=== PATIENT | female | born 1950 | race Caucasian/White ===

== ENCOUNTER → 2018-07-03 | Day surgery (SDC) | payer MEDICARE, OTHER ==
[~2018-07-03] MED LIST: Benzocaine 20% Oral Spray 59.2 ML Canister MUCMEM ONE; Lactated Ringers 1,000 ML IV SCH; Midazolam 1 MG/ML 2 ML SDV IV ONE; Midazolam 1 MG/ML 2 ML SDV ONE; fentaNYL 100 MCG/2 ML SDV IV ONE; fentaNYL 100 MCG/2 ML SDV ONE
[2018-07-03 09:27] VITALS: BP 129/47
--- NOTE | 2018-07-03 10:03 | OR ---
DATE OF OPERATION: 07/03/2018 PREOPERATIVE DIAGNOSIS: PERSONAL HISTORY OF PRIOR COLON POLYPS AND FAMILY HISTORY OF COLON CANCER. POSTOPERATIVE DIAGNOSIS: PERSONAL HISTORY OF PRIOR COLON POLYPS AND FAMILY HISTORY OF COLON CANCER. SURGEON: Román Franco MD PROCEDURE: TOTAL COLONOSCOPY. ANESTHESIA: Conscious sedation with IV Versed and fentanyl. SPECIMEN: None. FINDINGS: Some sigmoid diverticulosis, otherwise normal. RECOMMENDATIONS: Followup screening colonoscopy, 5 years depending on patient health. INDICATION FOR PROCEDURE: This 68-year-old female has had a brother with colon cancer in his mid 30s. She also had a colonoscopy 3 years ago with removal of 5 polyps. DESCRIPTION OF PROCEDURE: After adequate preparation, a colonoscope was inserted into the rectum. This was passed all the way to the cecum; however, traversing the sigmoid was quite difficult and painful for the patient. It was probably secondary to the amount of diverticulosis she has. I was able to get around to the right side, and palpation confirmed I was in the cecum. The bowel prep was adequate. On withdrawal of the scope, I did not see any recurrent polyp growths. She does have sigmoid diverticulosis. Anal and rectal examination were normal. Air was suctioned from the colon and the scope removed. BPB/MODL /[id number]
--- NOTE | 2018-07-03 12:50 | OR ---
DATE OF OPERATION: 07/03/2018 PREOPERATIVE DIAGNOSIS: HISTORY OF GASTRIC ULCERS AND GASTROESOPHAGEAL REFLUX DISEASE. POSTOPERATIVE DIAGNOSIS: HISTORY OF GASTRIC ULCERS AND GASTROESOPHAGEAL REFLUX DISEASE. SURGEON: Román Franco MD PROCEDURE: ESOPHAGOGASTRODUODENOSCOPY WITH BIOPSY OF GASTRIC ANTRUM FOR TERRI AND BIOPSY OF SMALL GASTRIC POLYP. ANESTHESIA: Conscious sedation with IV Versed and fentanyl. SPECIMEN: None. FINDINGS: Minimal gastritis and several small probable hyperplastic polyps RECOMMENDATIONS: Awaiting pathology. INDICATION FOR PROCEDURE: This 68-year-old female has a history of gastric ulcers, and now has recurrent epigastric pain and GERD symptoms. DESCRIPTION OF PROCEDURE: After adequate preparation, a gastroscope was inserted into the esophagus. This was passed down to the distal esophagus. This shows no evidence of a hiatal hernia or distal esophageal erosions. The scope was advanced into the stomach. Both, forward and retroflexed views were done. Along the body of the stomach, there were 4 to 5 benign-appearing hyperplastic polyps. One of these was completely excised using a cup biopsy forceps. Examination of the prepyloric area showed evidence of gastritis. A photograph of this was taken, and there were some small ulcerations around the pyloric opening itself. The scope was advanced through the pylorus, and the duodenal examination was normal. Air was suctioned from the stomach and the scope removed. TIANA/KELECHI /[id number]
== END ==
LOC: CC.SDS 07:24
PROVIDERS: ATTEND Surgery
DX: Z12.11 Encounter for screening for malignant neoplasm of colon (principal); K57.30 Diverticulosis of large intestine without perforation or abscess without bleeding; K21.9 Gastro-esophageal reflux disease without esophagitis; K31.7 Polyp of stomach and duodenum; I10 Essential (primary) hypertension; I42.0 Dilated cardiomyopathy; M19.90 Unspecified osteoarthritis, unspecified site; I25.10 Atherosclerotic heart disease of native coronary artery without angina pectoris; E78.5 Hyperlipidemia, unspecified; E78.1 Pure hyperglyceridemia; E03.9 Hypothyroidism, unspecified; G47.33 Obstructive sleep apnea (adult) (pediatric); Z86.010 Personal history of colon polyps; Z79.82 Long term (current) use of aspirin; Z79.899 Other long term (current) drug therapy; Z79.890 Hormone replacement therapy; Z80.0 Family history of malignant neoplasm of digestive organs; Z88.8 Allergy status to other drugs, medicaments and biological substances; Z88.0 Allergy status to penicillin; Z88.5 Allergy status to narcotic agent
CPT/HCPCS: 43239; 82962; 87081; G0105; J2250; J3010; J7120; 88305

== ENCOUNTER 2019-01-21 17:35 | Observation (INO) | payer MEDICARE, OTHER ==
--- NOTE | 2019-01-21 18:33 | EDM.PDOC ---
ED HPI GENERAL MEDICAL PROBLEM - General Chief Complaint: Cardiovascular Problem Stated Complaint: defibrillator going off Time Seen by Provider: 01/21/19 17:55 Source of Information: Reports: Patient History Limitations: Reports: No Limitations - History of Present Illness INITIAL COMMENTS - FREE TEXT/NARRATIVE: Libby is a 68 yo female who presents to the ED via [facility] with concerns of her defibrillator going off. She states it has never done this before. States she had went out to the get the mail from the mailbox and started to feel lightheaded. Upon getting back in the house she elected to sit in her recliner. She states she did have a drink of water and then her defibrillator shocked her about 4 times. States she tried getting up afterwards but felt really weak. Admits the weakness is improving. She states since arrival of the ambulance she hasn't had any further shocks. States she doesn't feel lightheaded anymore. States she did get a little short of breath at onset but that has subsided as well. States overall she has been feeling well up until this evening. States she is starting to feel like her normal self again. Denies any chest pain, palpitations or shortness of breath presently. Duration: Resolved Prior to Arrival Location: Reports: Chest Associated Symptoms: Reports: Nausea/Vomiting, Shortness of Breath, Weakness - Related Data Allergies Allergy/AdvReac Type Severity Reaction Status Date / Time lisinopril Allergy Cough Verified 01/21/19 18:10 oxycodone [From Roxicet] Allergy Vomiting Verified 01/21/19 18:10 oxycodone HCl [From Endocet] Allergy Nausea Verified 01/21/19 18:10 Penicillins Allergy Nausea and Verified 01/21/19 18:10 Vomiting Home Meds: Home Meds Aspirin 81 mg PO DAILY 02/09/15 [History] Butalbital/Aspirin/Caffeine [Fiorinal 50-325-40 MG] 1 - 2 tab PO TID PRN [History] Calcium Carbonate/Vitamin D3 [Calcium 600-Vit D3 400 Tablet] 2 tab PO DAILY [History] Carvedilol 25 mg PO BID 02/09/15 [History] Cholecalciferol (Vitamin D3) [Vitamin D3] 5,000 unit PO DAILY 02/09/15 [History] Docusate Sodium [Colace] 100 mg PO TID 02/09/15 [History] Furosemide 40 mg PO DAILY 02/09/15 [History] Levothyroxine [Synthroid] 50 mcg PO BEDTIME 02/09/15 [History] Losartan [Cozaar] 100 mg PO DAILY 02/09/15 [History] Magnesium 400 mg PO DAILY 02/09/15 [History] Multivitamin with Minerals [Multiple Vitamin] 1 tab PO DAILY 02/09/15 [History] Pantoprazole Sodium 40 mg PO DAILY 02/09/15 [History] Potassium Chloride 20 meq PO DAILY 02/09/15 [History] Rosuvastatin Calcium [Crestor] 10 mg PO BEDTIME 02/09/15 [History] Vitamin B Complex Vit C No.4 [Super B Complex] 1 tab PO DAILY 02/09/15 [History] Clotrimazole/Betamethasone Dip [Lotrisone Cream] 1 applic TOP BID PRN 07/03/18 [ History] Cyclobenzaprine HCl 10 mg PO BID PRN 07/03/18 [History] Spironolactone [Aldactone] 12.5 mg PO DAILY 07/03/18 [History] Triamcinolone Acetonide [Triamcinolone Acetonide 0.1% Crm] 1 applic TOP ASDIRECTED PRN 07/03/18 [History] metFORMIN [Glucophage] 1,000 mg PO DAILY 07/03/18 [History] traMADol HCl [Tramadol HCl] 50 mg PO Q6H PRN 07/03/18 [History] Estradiol [Estrace] 1 tab PO DAILY 01/21/19 [History] Past Medical History Cardiovascular History: Reports: Automatic Implantable Cardioverter Defibrillators, Cardiomyopathy, High Cholesterol, Hypertension, Pacemaker Respiratory History: Reports: Sleep Apnea Gastrointestinal History: Reports: GERD Psychiatric History: Reports: Depression Endocrine/Metabolic History: Reports: Hypothyroidism - Past Surgical History HEENT Surgical History: Reports: Naso-Sinus Surgery GI Surgical History: Reports: Appendectomy, Cholecystectomy Female Surgical History: Reports: Section, Hysterectomy Social & Family History - Family History Family Medical History: Noncontributory - Tobacco Use Smoking Status *Q: Never Smoker - Caffeine Use Caffeine Use: Reports: None - Recreational Drug Use Recreational Drug Use: No ED ROS GENERAL - Review of Systems Review Of Systems: See Below Constitutional: Reports: Weakness. Denies: Fever, Chills, Diaphoresis HEENT: Reports: No Symptoms Respiratory: Reports: Shortness of Breath (resolved). Denies: Cough Cardiovascular: Reports: Lightheadedness (resolved). Denies: Chest Pain, Palpitations, Syncope GI/Abdominal: Reports: No Symptoms : Reports: No Symptoms Neurological: Reports: No Symptoms Psychiatric: Reports: No Symptoms ED EXAM, GENERAL - Physical Exam Exam: See Below Exam Limited By: No Limitations General Appearance: Alert, No Apparent Distress Ears: Normal External Exam, Normal Canal, Hearing Grossly Normal, Normal TMs Nose: Normal Inspection, Normal Mucosa, No Blood Throat/Mouth: Normal Inspection, Normal Lips, Normal Gums, Normal Oropharynx, Normal Voice, No Airway Compromise Head: Atraumatic, Normocephalic Neck: Normal Inspection, Supple Respiratory/Chest: No Respiratory Distress, Lungs Clear, Normal Breath Sounds, No Accessory Muscle Use Cardiovascular: Regular Rate, Rhythm, No Edema, No Murmur GI/Abdominal: Normal Bowel Sounds, Soft, Non-Tender, No Distention Extremities: Normal Inspection Neurological: Alert, Oriented, No Motor/Sensory Deficits Psychiatric: Normal Affect, Normal Mood Skin Exam: Warm, Dry, Intact, Normal Color, No Rash EKG INTERPRETATION EKG Date: 01/21/19 Time: 17:45 Rhythm: Other (ventricular paced rhythm) Comparison: NA - No Prior EKG Course - Vital Signs Last Recorded V/S: Last Vital Signs Temp 98.8 F 01/21/19 18:00 Pulse 95 01/21/19 18:00 Resp 20 01/21/19 18:00 BP 122/87 01/21/19 18:00 Pulse Ox 97 01/21/19 18:00 - Orders/Labs/Meds Orders: Active Orders 24 hr Category Date Time Status Patient Status Manage Transfer [TRANSFER] Routine ADT 01/21/19 20:08 Ordered Chest 2V [CR] Stat Exams 01/21/19 17:44 Taken Resuscitation Status Routine Resus Stat 01/21/19 20:09 Ordered Labs: Laboratory Tests 01/21/19 01/21/19 01/21/19 Range/Units 17:35 17:50 17:50 WBC 7.2 (5.0-10.0) 10^3/uL RBC 4.75 (4.00-5.50) 10^6/uL Hgb 12.7 (12.0-16.0) g/dL Hct 39.3 (37.0-47.0) % MCV 82.7 (82.0-94.0) fL MCH 26.7 L (27.0-32.0) pg MCHC 32.3 L (33.0-38.0) g/dL RDW Coeff of Kasey 15.6 H (11.0-15.0) % Plt Count 298 (150-400) 10^3/uL Neut % (Auto) 52.0 (35-85) % Lymph % (Auto) 35.1 (10-55) % [place] % (Auto) 8.9 (0-16) % Eos % (Auto) 3.6 (0-5) % Baso % (Auto) 0.4 (0-3) % Neut # (Auto) 3.75 (1.80-7.00) 10^3/uL Lymph # (Auto) 2.53 (1.00-4.80) 10^3/uL [place] # (Auto) 0.64 (0.00-0.80) 10^3/uL Eos # (Auto) 0.26 (0.00-0.45) 10^3/uL Baso # (Auto) 0.03 10^3/uL PT 10.2 (9.7-12.3) SEC INR 0.99 (0.92-1.18) Sodium (136-145) mEq/L Potassium (3.5-5.0) mEq/L Chloride (98-106) mEq/L Carbon Dioxide (21-32) mmol/L BUN (7-18) mg/dL Creatinine (0.6-1.0) mg/dL Est Cr Clr Drug Dosing mL/min Estimated GFR (MDRD) (>=60) mL/min Glucose (75-99) mg/dL Calcium (8.4-10.1) mg/dL Magnesium 1.8 (1.8-2.4) mg/dL Total Bilirubin (0.0-1.0) mg/dL AST (15-37) U/L ALT (12-78) U/L Alkaline Phosphatase (46-116) U/L Lactate Dehydrogenase (100-190) U/L Creatine Kinase (21-215) U/L Troponin I (0.00-0.06) ng/mL Total Protein (6.4-8.2) g/dL Albumin (3.4-5.0) g/dL 01/21/19 Range/Units 17:50 WBC (5.0-10.0) 10^3/uL RBC (4.00-5.50) 10^6/uL Hgb (12.0-16.0) g/dL Hct (37.0-47.0) % MCV (82.0-94.0) fL MCH (27.0-32.0) pg MCHC (33.0-38.0) g/dL RDW Coeff of Kasey (11.0-15.0) % Plt Count (150-400) 10^3/uL Neut % (Auto) (35-85) % Lymph % (Auto) (10-55) % [place] % (Auto) (0-16) % Eos % (Auto) (0-5) % Baso % (Auto) (0-3) % Neut # (Auto) (1.80-7.00) 10^3/uL Lymph # (Auto) (1.00-4.80) 10^3/uL [place] # (Auto) (0.00-0.80) 10^3/uL Eos # (Auto) (0.00-0.45) 10^3/uL Baso # (Auto) 10^3/uL PT (9.7-12.3) SEC INR (0.92-1.18) Sodium 139 (136-145) mEq/L Potassium 3.3 L D (3.5-5.0) mEq/L Chloride 100 (98-106) mEq/L Carbon Dioxide 27 (21-32) mmol/L BUN 13 (7-18) mg/dL Creatinine 1.0 (0.6-1.0) mg/dL Est Cr Clr Drug Dosing 52.36 mL/min Estimated GFR (MDRD) 55 L (>=60) mL/min Glucose 154 H (75-99) mg/dL Calcium 9.1 (8.4-10.1) mg/dL Magnesium (1.8-2.4) mg/dL Total Bilirubin 0.2 (0.0-1.0) mg/dL AST 18 (15-37) U/L ALT 28 (12-78) U/L Alkaline Phosphatase 77 (46-116) U/L Lactate Dehydrogenase 143 (100-190) U/L Creatine Kinase 68 (21-215) U/L Troponin I 0.034 (0.00-0.06) ng/mL Total Protein 7.2 (6.4-8.2) g/dL Albumin 3.4 (3.4-5.0) g/dL - Re-Assessments/Exams Free Text/Narrative Re-Assessment/Exam: 01/21/19 19:48 Jaycee has been doing well in the ED. She hasn't had any further discharges of her defibrillator. She currently states she is feeling back to her normal self. I consulted with Systems Checkout Mechanic Dr. Barboza at [facility] in [place] and recommended giving magnesium and potassium. Goal with potassium is above 4 per light rail signal technician. Departure - Departure Time of Disposition: 19:46 Disposition: Refer to Observation Clinical Impression: Defibrillator discharge Referrals: Alissa Tovar, POLICY CHECKER [Primary Care Provider] - Forms: ED Department Discharge - Problem List & Annotations (1) Defibrillator discharge SNOMED Code(s): 146163505, 471694474 Code(s): Z45.02 - ENCNTR FOR ADJUST AND MGMT OF AUTOMATIC IMPLNTBL CARD DEFIB Status: Acute (2) Hypokalemia SNOMED Code(s): 47439556 Code(s): E87.6 - HYPOKALEMIA Status: Acute - Problem List Review Problem List Initiated/Reviewed/Updated: Yes - My Orders Last 24 Hours: My Active Orders 01/21/19 17:44 Chest 2V [CR] Stat 01/21/19 20:08 Patient Status Manage Transfer [TRANSFER] Routine 01/21/19 20:09 Resuscitation Status Routine - Assessment/Plan Admission H&P: Please use this note as an admission H&P Last 24 Hours: My Active Orders 01/21/19 17:44 Chest 2V [CR] Stat 01/21/19 20:08 Patient Status Manage Transfer [TRANSFER] Routine 01/21/19 20:09 Resuscitation Status Routine Plan: No shocks during time in ED. Will admit under observation to Dr. Cortes's services. Again, consulted with cardiology who advised monitoring. See course. Recommended repeating cardiac enzymes and treating with Potassium and Magnesium supplementation. Stated if cardiac enzymes are negative, may discharge home. I did consult with Dr. Cortes and let him know about admission, which he was in agreement with. We have been working with [employer] rep to get interrogation of pacemaker. We were able to get an interrogation which the [employer] Rep did confirm it is appropriately working as she had a run of V Tach. He stated it did initially tried capturing and pacing, which was not successful. States it then did give 7-8 shocks with the last shock keeping her in a normal paced rhythm. Cardiac enzymes will be done at 2200hrs and again in am.
[2019-01-21] MEDS ORDERED: Potassium Chloride 20 MEQ in Premix Bag 2 BAG IV ONE (22:02)
[2019-01-21] MEDS ORDERED: CYCLOBENZAPRINE 10 MG PO PRN (22:02)
[2019-01-21] MEDS ORDERED: BUTALBITAL PO PRN (22:02)
[2019-01-21] MEDS ORDERED: CAFFEINE PO PRN (22:02)
[2019-01-21] MEDS ORDERED: TRAMADOL 50 MG PO PRN (22:02)
[2019-01-21] MEDS ORDERED: [UNRECOGNIZED DRUG - OTHER] PO PRN (22:02)
[2019-01-21] MEDS ORDERED: ASPIRIN PO PRN (22:02)
[2019-01-21] MEDS ORDERED: Enoxaparin 30 MG/0.3 ML Syringe SUBCUT SCH (22:02)
[2019-01-21] MEDS: Potassium Chloride 20 MEQ in Premix Bag 1 BAG IV SCH (23:34)
[2019-01-21] MEDS ORDERED: Sodium Chloride 0.9% 250 ML ONE (23:51)
[2019-01-22] MEDS ORDERED: Lidocaine 1% 20 ML MDV ONE (00:12)
[2019-01-22] MEDS ORDERED: Lidocaine 1% 20 ML MDV INJECT ONE (00:36)
[2019-01-22] MEDS ORDERED: Sodium Chloride 0.9% 250 ML IV SCH (00:45)
[2019-01-22] MEDS: Potassium Chloride 20 MEQ in Premix Bag 1 BAG IV SCH (05:42)
[2019-01-22] MEDS ORDERED: **PTOM** Pantoprazole 40 MG Tab.CR PO SCH (07:00)
[2019-01-22 07:45] LABS: CHLORIDE,CL 104 mEq/L (98-106); SODIUM,NA 140 mEq/L (136-145)
[2019-01-22] MEDS ORDERED: **PTOM** Aspirin 81 MG Tab.EC PO SCH (08:00)
[2019-01-22] MEDS ORDERED: **PTOM** Losartan 100 MG Tab PO SCH (08:00)
[2019-01-22] MEDS ORDERED: **PTOM** Furosemide 40 MG Tab PO SCH (08:00)
[2019-01-22] MEDS ORDERED: Carvedilol 12.5 MG Tab PO SCH (08:00)
[2019-01-22] MEDS ORDERED: ESTRADIOL 1 MG PO SCH (08:00)
[2019-01-22] MEDS ORDERED: Potassium Chloride 10 MEQ Tab.ER PO SCH (08:00)
[2019-01-22] MEDS ORDERED: SPIRONOLACTONE 25 MG PO SCH (08:00)
[2019-01-22] MEDS ORDERED: **PTOM** metFORMIN 500 MG Tab PO SCH (08:00)
[2019-01-22] MEDS ORDERED: **PTOM** Docusate Sodium 100 MG Cap PO SCH (08:00)
[2019-01-22 08:53] VITALS: BP 136/53
[2019-01-22] MEDS ORDERED: CARVEDILOL 25 MG PO SCH (09:15)
[2019-01-22] MEDS ORDERED: Simvastatin 40 MG Tab PO SCH (20:00)
[2019-01-22] MEDS ORDERED: Non-Formulary Medication 1 Each (Rosuvastatin Calcium [Crestor] 10 MG) PO SCH (20:00)
[2019-01-22] MEDS ORDERED: **PTOM** Levothyroxine 50 MCG Tab PO SCH (20:00)
[2019-01-22] MEDS ORDERED: ROSUVASTATIN 20 MG PO SCH (20:00)
--- NOTE | 2019-01-22 22:18 | PCM.DCSUM1 ---
Discharge Summary - Hospital Course Free Text/Narrative:: Patient presented to ER with near syncope, defibrillator going off. Had been walking out to the mail box and started to feel very weak and lightheaded, thought she was going to pass out. Sat on her kitchen chair but continued to feel lightheaded. Defibrillator had went off several times. ON arrival to the ER, patient was feeling better. No further shortness of breath, no headache or chest pain. Did still feel weak. Labs done, potassium mildly low at 3.3, troponin negative. Adi Franks did call cardiology at [facility], recommended admit with replacement of potassium and magnesium. Keep potassium above 4. Diagnosis: Stroke: No Modified Cristobal Scale: No Symptoms at All Modified Sussex Scale Score: 0 - Discharge Data Discharge Date: 01/22/19 Discharge Disposition: DC/Tfer to Acute Hospital 02 Condition: Fair - Patient Summary/Data Complications: none Hospital Course: Patient has been feeling good since admission. No further discharges from the defibrillator. No chest pain or shortness of breath. Potassium and magnesium have stabilized. Potassium 4.3 this am, magnesium 2.3. Did receive call from TOYIN Matta in electrophysiology at [facility] with report from device interrogation. She recommends transfer to cardiology and electrophysiology for further work up due to v tach storm noted on tracing. Had one 2 second episode of v fib. Did require 8 discharges from the device to convert patient to stable rhythm. Feels needs further work up for cause, rule out ischemia. Did discuss with patient and . Consulted with Dr. Magana, hospitalist at [facility]. Agreed to accept the patient in transfer for further work up. - Patient Instructions Other/Special Instructions: Transfer to [facility] to Dr. Magana - Discharge Plan *PRESCRIPTION DRUG MONITORING PROGRAM REVIEWED*: No *COPY OF PRESCRIPTION DRUG MONITORING REPORT IN PATIENT ANNE: No Prescriptions/Med Rec: Magnesium Oxide [Magnesium] 400 mg PO BID #60 capsule Potassium Chloride 20 meq PO BID #60 tablet.er Home Medications: Home Meds Aspirin 81 mg PO DAILY 02/09/15 [History] Butalbital/Aspirin/Caffeine [Fiorinal 50-325-40 MG] 1 - 2 tab PO TID PRN [History] Calcium Carbonate/Vitamin D3 [Calcium 600-Vit D3 400 Tablet] 2 tab PO DAILY [History] Carvedilol 25 mg PO BID 02/09/15 [History] Cholecalciferol (Vitamin D3) [Vitamin D3] 5,000 unit PO DAILY 02/09/15 [History] Docusate Sodium [Colace] 100 mg PO TID 02/09/15 [History] Furosemide 40 mg PO DAILY 02/09/15 [History] Levothyroxine [Synthroid] 50 mcg PO BEDTIME 02/09/15 [History] Losartan [Cozaar] 100 mg PO DAILY 02/09/15 [History] Multivitamin with Minerals [Multiple Vitamin] 1 tab PO DAILY 02/09/15 [History] Pantoprazole Sodium 40 mg PO DAILY 02/09/15 [History] Rosuvastatin Calcium [Crestor] 10 mg PO BEDTIME 02/09/15 [History] Vitamin B Complex Vit C No.4 [Super B Complex] 1 tab PO DAILY 02/09/15 [History] Clotrimazole/Betamethasone Dip [Lotrisone Cream] 1 applic TOP BID PRN 07/03/18 [ History] Cyclobenzaprine HCl 10 mg PO BID PRN 07/03/18 [History] Spironolactone [Aldactone] 12.5 mg PO DAILY 07/03/18 [History] Triamcinolone Acetonide [Triamcinolone Acetonide 0.1% Crm] 1 applic TOP ASDIRECTED PRN 07/03/18 [History] metFORMIN [Glucophage] 1,000 mg PO DAILY 07/03/18 [History] traMADol HCl [Tramadol HCl] 50 mg PO Q6H PRN 07/03/18 [History] Estradiol [Estrace] 1 tab PO DAILY 01/21/19 [History] Magnesium Oxide [Magnesium] 400 mg PO BID #60 capsule 01/22/19 [Rx] Potassium Chloride 20 meq PO BID #60 tablet.er 01/22/19 [Rx] Forms: ED Department Discharge - Discharge Summary/Plan Comment DC Time >30 min.: Yes Discharge Summary/Plan Comment: Transfer to [facility] to Dr. Magana per ALS Time for exam and discussion with family 20 minutes Time for consult 20 minutes Time for discharge/transfer orders and documentation 15 minutes - General Info Date of Service: 01/22/19 Admission Dx/Problem (Free Text: Defibrillator Discharge Hypokalemia Functional Status: Reports: Pain Controlled, Tolerating Diet, Ambulating - Review of Systems General: Denies: Fever, Weakness, Fatigue, Malaise HEENT: Reports: No Symptoms Pulmonary: Denies: Shortness of Breath, Cough Cardiovascular: Denies: Chest Pain, Edema, Lightheadedness Gastrointestinal: Reports: No Symptoms Genitourinary: Reports: No Symptoms Musculoskeletal: Reports: No Symptoms Skin: Reports: No Symptoms Neurological: Reports: No Symptoms Psychiatric: Reports: No Symptoms - Patient Data Vitals - Most Recent: Last Vital Signs Temp 97.8 F 01/22/19 08:00 Pulse 77 01/22/19 08:00 Resp 20 01/22/19 08:00 BP 136/53 L 01/22/19 09:28 Pulse Ox 98 01/22/19 08:00 Weight - Most Recent: 211 lb I&O - Last 24 hours: Intake & Output 01/22/19 01/22/19 01/22/19 06:59 14:59 22:59 Intake Total 100 Balance 100 Lab Results - Last 24 hrs: Laboratory Results - last 24 hr 01/21/19 01/22/19 Range/Units 22:02 07:00 Sodium 140 (136-145) mEq/L Potassium 4.3 D (3.5-5.0) mEq/L Chloride 104 (98-106) mEq/L Carbon Dioxide 28 (21-32) mmol/L BUN 13 (7-18) mg/dL Creatinine 0.8 (0.6-1.0) mg/dL Est Cr Clr Drug Dosing 65.45 mL/min Estimated GFR (MDRD) > 60 (>=60) mL/min Glucose 107 H D (75-99) mg/dL Calcium 9.5 (8.4-10.1) mg/dL Magnesium 2.3 (1.8-2.4) mg/dL Lactate Dehydrogenase 162 (100-190) U/L Creatine Kinase 589 H 725 H (21-215) U/L Troponin I 0.432 H 0.226 H (0.00-0.06) ng/mL Med Orders - Current: Current Medications Discontinued Medications Aspirin (Halfprin) [address] [facility] Last Admin: 01/22/19 09:29 Dose: 81 mg Carvedilol (Coreg) [address] [facility] Cyclobenzaprine HCl (Flexeril) 10 mg PO BID PRN PRN Reason: Muscle Spasm Docusate Sodium (Colace) [address] [facility] Last Admin: 01/22/19 09:29 Dose: 100 mg Enoxaparin Sodium (Lovenox) [address] [facility] Last Admin: 01/21/19 22:42 Dose: 30 mg Estradiol (Estradiol) [address] [facility] Last Admin: 01/22/19 09:30 Dose: 1 mg Furosemide (Lasix) [address] [facility] Last Admin: 01/22/19 09:29 Dose: 40 mg Magnesium Sulfate/Dextrose 1 (gm/ Premix) 100 mls @ 100 mls/hr IV ONETIME ONE Stop: 01/21/19 23:01 Last Admin: 01/21/19 22:32 Dose: 100 mls/hr Potassium Chloride 20 meq/ (Premix) 100 mls @ 25 mls/hr IV Q4H [facility] Stop: 01/22/19 06:29 Last Admin: 01/22/19 05:42 Dose: 25 mls/hr Sodium Chloride (Normal Saline) Confirm Administered Dose 250 mls @ as directed .ROUTE .STK-MED ONE Stop: 01/21/19 23:52 Last Admin: 01/22/19 00:38 Dose: Not Given Sodium Chloride (Normal Saline) 250 mls @ 31 mls/hr IV ASDIRECTED [facility] Stop: 01/22/19 08:49 Last Admin: 01/22/19 00:17 Dose: 31 mls/hr Levothyroxine Sodium (Synthroid) [address] [facility] Lidocaine HCl (Xylocaine 1%) Confirm Administered Dose 20 ml .ROUTE .STK-MED ONE Stop: 01/22/19 00:13 Last Admin: 01/22/19 00:38 Dose: Not Given Lidocaine HCl (Xylocaine 1%) 0 ml INJECT ONETIME ONE Stop: 01/22/19 00:37 Last Admin: 01/22/19 00:17 Dose: 1 ml Losartan Potassium (Cozaar) [address] [facility] Last Admin: 01/22/19 09:28 Dose: 100 mg Magnesium Oxide (Magnesium Oxide) [address] [facility] Last Admin: 01/22/19 10:17 Dose: 500 mg Magnesium Oxide (Magnesium Oxide) Confirm Administered Dose 250 mg .ROUTE .STK- MED ONE Stop: 01/22/19 10:27 Last Admin: 01/22/19 10:55 Dose: Not Given Metformin HCl (Glucophage) 1,[address] [facility] Last Admin: 01/22/19 09:30 Dose: 1,000 mg Non-Formulary Medication (Butalbital/Aspirin/Caffeine [Fiorinal 50-325-40 Mg]) 1 - 2 tab PO TID PRN PRN Reason: Headache Ptom Carvedilol (25 Mg Tab) [address] [facility] Last Admin: 01/22/19 09:28 Dose: 25 mg Ptom Potassium (Chloride 20 Meq) [address] [facility] Last Admin: 01/22/19 09:28 Dose: 20 meq Ptom Rosuvastatin 20 Mg Tab [address] [facility] Pantoprazole Sodium (Protonix) 40 mg PO DAILY@0700 [facility] Last Admin: 01/22/19 09:29 Dose: 40 mg Potassium Chloride (Klor-Con 10) [address] [facility] Simvastatin (Zocor) [address] [facility] Spironolactone (Aldactone) 12.[address] [facility] Last Admin: 01/22/19 09:30 Dose: 12.5 mg Tramadol HCl (Ultram) 50 mg PO Q6H PRN PRN Reason: Pain - Exam General: Reports: Alert, Oriented HEENT: Reports: Mucous Membr. Moist/[place] Neck: Reports: Supple Lungs: Reports: Clear to Auscultation, Normal Respiratory Effort Cardiovascular: Reports: Regular Rate, Regular Rhythm GI/Abdominal Exam: Normal Bowel Sounds, Soft, Non-Tender Extremities: Normal Inspection, No Pedal Edema Skin: Reports: Warm, Dry Neurological: Reports: No New Focal Deficit
== END 2019-01-22 10:35 ==
LOC: CC.ED 17:35 → CC.MS 19:58 → UNDOADMOB 19:58 → CC.ED 20:00 → CC.MS 20:09
PROVIDERS: ADMIT Physician Assistant Medical; ATTEND Family Medicine
DX: T82.198A Other mechanical complication of other cardiac electronic device, initial encounter (principal); E87.6 Hypokalemia; I10 Essential (primary) hypertension; I42.9 Cardiomyopathy, unspecified; K21.9 Gastro-esophageal reflux disease without esophagitis; E03.9 Hypothyroidism, unspecified; E78.00 Pure hypercholesterolemia, unspecified; Z79.82 Long term (current) use of aspirin; Z79.84 Long term (current) use of oral hypoglycemic drugs; Z88.0 Allergy status to penicillin; Z88.5 Allergy status to narcotic agent; Z88.8 Allergy status to other drugs, medicaments and biological substances; Z95.0 Presence of cardiac pacemaker; Z98.890 Other specified postprocedural states
CPT/HCPCS: 36415; 71046; 80048; 80053; 82550; 83615; 83735; 84484; 85025; 85610; 93005; 96365; 96366; 96367; 96372; 99217; 99220; 99285-25; A4217; A9270-GY; G0378; J1650; J2001; J3475; J3480; J7050

== ENCOUNTER 2019-12-17 11:20 | Emergency (ER) | payer MEDICARE, OTHER ==
[2019-12-17 12:07] VITALS: BP 126/52; PULSE 82
--- NOTE | 2019-12-17 12:12 | EDM.PDOC ---
ED HPI GENERAL MEDICAL PROBLEM - General Chief Complaint: Lower Extremity Injury/Pain Stated Complaint: leg pain Time Seen by Provider: 12/17/19 11:30 Source of Information: Reports: Patient, EMS, RN History Limitations: Reports: No Limitations - History of Present Illness INITIAL COMMENTS - FREE TEXT/NARRATIVE: Pt brought in by EMS. States that she missed the last step when she was coming out of the house. She has pain to the right lower leg and has obvious deformities noted. She denies any distal numbness and tingling. She denies any other injuries. No LOC. Does have many underlying health issues including implanted defibrillator, DM, CHF. Onset: Today Onset Date: 12/17/19 Onset Time: 10:00 Location: Reports: Lower Extremity, Right Quality: Reports: Stabbing Improves with: Reports: Immobilization Worsens with: Reports: Movement Associated Symptoms: Reports: No Other Symptoms - Related Data Allergies Allergy/AdvReac Type Severity Reaction Status Date / Time lisinopril Allergy Cough Verified 12/17/19 11:36 oxycodone [From Roxicet] Allergy Vomiting Verified 12/17/19 11:36 oxycodone HCl [From Endocet] Allergy Nausea Verified 12/17/19 11:36 Penicillins Allergy Nausea and Verified 12/17/19 11:36 Vomiting Home Meds: Home Meds Aspirin 81 mg PO DAILY 02/09/15 [History] Butalbital/Aspirin/Caffeine [Fiorinal 50-325-40 MG] 1 - 2 tab PO TID PRN [History] Calcium Carbonate/Vitamin D3 [Calcium 600-Vit D3 400 Tablet] 2 tab PO DAILY [History] Cholecalciferol (Vitamin D3) [Vitamin D3] 5,000 unit PO DAILY 02/09/15 [History] Docusate Sodium [Colace] 100 mg PO TID 02/09/15 [History] Furosemide 40 mg PO DAILY 02/09/15 [History] Levothyroxine [Synthroid] 50 mcg PO BEDTIME 02/09/15 [History] Losartan [Cozaar] 50 mg PO DAILY 02/09/15 [History] Multivitamin with Minerals [Multiple Vitamin] 1 tab PO DAILY 02/09/15 [History] Pantoprazole Sodium 40 mg PO DAILY 02/09/15 [History] Rosuvastatin Calcium [Crestor] 10 mg PO BEDTIME 02/09/15 [History] Vitamin B Complex Vit C No.4 [Super B Complex] 1 tab PO DAILY 02/09/15 [History] carvediloL [Carvedilol] 12.5 mg PO BID 02/09/15 [History] Clotrimazole/Betamethasone Dip [Lotrisone Cream] 1 applic TOP BID PRN 07/03/18 [ History] Cyclobenzaprine HCl 10 mg PO BID PRN 07/03/18 [History] Spironolactone [Aldactone] 12.5 mg PO DAILY 07/03/18 [History] Triamcinolone Acetonide [Triamcinolone Acetonide 0.1% Crm] 1 applic TOP ASDIRECTED PRN 07/03/18 [History] metFORMIN [Glucophage] 1,000 mg PO 1700 07/03/18 [History] traMADol HCl [Tramadol HCl] 50 mg PO Q6H PRN 07/03/18 [History] estradioL [Estrace] 1 tab PO DAILY 01/21/19 [History] Magnesium Oxide [Magnesium] 400 mg PO BID #60 capsule 01/22/19 [Rx] Potassium Chloride 20 meq PO BID #60 tablet.er 01/22/19 [Rx] Hydrocodone/Acetaminophen [[place] 10-325 Tablet] 1 each PO Q6H PRN 12/17/19 [ History] Sotalol HCl [Sotalol] 120 mg PO BID 12/17/19 [History] Past Medical History Cardiovascular History: Reports: Automatic Implantable Cardioverter Defibrillators, Cardiomyopathy, High Cholesterol, Hypertension, Pacemaker Respiratory History: Reports: Sleep Apnea Gastrointestinal History: Reports: GERD Genitourinary History: Reports: None 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: Psychiatric History: Reports: Depression Endocrine/Metabolic History: Reports: Hypothyroidism - Past Surgical History HEENT Surgical History: Reports: Naso-Sinus Surgery Cardiovascular Surgical History: Reports: AICD, Pacer Respiratory Surgical History: Reports: None GI Surgical History: Reports: Appendectomy, Cholecystectomy Female Surgical History: Reports: Section, Hysterectomy Endocrine Surgical History: Reports: None Social & Family History - Family History Family Medical History: Noncontributory - Caffeine Use Caffeine Use: Reports: None - Living Situation & Occupation Living situation: Reports: , with Spouse Occupation: Unemployed Review of Systems - Review of Systems Review Of Systems: See Below Constitutional: Reports: No Symptoms Eyes: Reports: No Symptoms Ears: Reports: No Symptoms Nose: Reports: No Symptoms Respiratory: Reports: No Symptoms Cardiovascular: Reports: No Symptoms GI/Abdominal: Reports: No Symptoms Musculoskeletal: Reports: Other (see HPI) Skin: Reports: Bruising (right lower leg.) ED EXAM, GENERAL - Physical Exam Exam: See Below Exam Limited By: No Limitations General Appearance: Alert, WD/WN, Moderate Distress Ears: Normal External Exam, Normal Canal Throat/Mouth: Normal Inspection, Normal Oropharynx, No Airway Compromise Head: Atraumatic, Normocephalic Neck: Normal Inspection, Supple, Non-Tender, Full Range of Motion Respiratory/Chest: No Respiratory Distress, Lungs Clear, Normal Breath Sounds Cardiovascular: Regular Rate, Rhythm, Other (defibrillator noted tot he left upper chest wall.) GI/Abdominal: Normal Bowel Sounds, Soft, Non-Tender Extremities: Other (swelling and deformity noted to the right lower extremity. Pulses are present distally.) Neurological: Alert, Oriented Psychiatric: Normal Affect, Normal Mood Skin Exam: Warm, Dry, Intact Course - Orders/Labs/Meds Orders: Active Orders 24 hr Category Date Time Status Ankle Min 3V Rt [CR] Stat Exams 12/17/19 11:31 Ordered - Re-Assessments/Exams Free Text/Narrative Re-Assessment/Exam: 12/17/19 12:[address] Lu orthopedics at [facility]. He will accept pt from ortho standpoint. 12/17/2019 [address] Muñoz hospitalist at [facility] who accepted pt for inpt admission. Risks of transfer include include pain uncontrolled, benefits are specialists are available to fix fractures and monitor the cardiac status. risks of not transferring include permanent disability and pain control. benefits of not transfer are none. Departure - Departure Time of Disposition: 12:42 Disposition: DC/Tfer to Acute Hospital 02 Condition: Good Clinical Impression: Diabetes mellitus, History of cardiac defibrillator placement Tibia/fibula fracture, shaft Qualifiers: Encounter type: initial encounter Fracture type: closed Laterality: right Qualified Code(s): S82.201A - Unspecified fracture of shaft of right tibia, initial encounter for closed fracture; S82.401A - Unspecified fracture of shaft of right fibula, initial encounter for closed fracture - Discharge Information *PRESCRIPTION DRUG MONITORING PROGRAM REVIEWED*: Not Applicable *COPY OF PRESCRIPTION DRUG MONITORING REPORT IN PATIENT ANNE: Not Applicable Referrals: Marilee Franks PA-C [Primary Care Provider] - Additional Instructions: transfer to [facility] to Dr. Muñoz hospitalist. ALEJO hurd. - Problem List & Annotations (1) Tibia/fibula fracture, shaft SNOMED Code(s): 846590351 Code(s): S82.209A - UNSP FRACTURE OF SHAFT OF UNSP TIBIA, INIT FOR CLOS FX; S82.409A - UNSP FRACTURE OF SHAFT OF UNSP FIBULA, INIT FOR CLOS FX Status: Acute Priority: High Current Visit: Yes Qualifiers: Encounter type: initial encounter Fracture type: closed Laterality: right Qualified Code(s): S82.201A - Unspecified fracture of shaft of right tibia, initial encounter for closed fracture; S82.401A - Unspecified fracture of shaft of right fibula, initial encounter for closed fracture - Problem List Review Problem List Initiated/Reviewed/Updated: Yes - My Orders Last 24 Hours: My Active Orders 12/17/19 11:31 Ankle Min 3V Rt [CR] Stat - Assessment/Plan Last 24 Hours: My Active Orders 12/17/19 11:31 Ankle Min 3V Rt [CR] Stat
[2019-12-17] MEDS: fentaNYL 100 MCG/2 ML SDV IVPUSH ONE (12:15)
[2019-12-17 12:38] LABS: CHLORIDE,CL 103 mEq/L (98-106); SODIUM,NA 139 mEq/L (136-145)
[2019-12-17] MEDS: Sodium Chloride 0.45% 1,000 ML IV SCH (13:00)
[2019-12-17] MEDS: fentaNYL 100 MCG/2 ML SDV IM PRN (13:01)
== END 2019-12-17 13:45 ==
LOC: CC.ED 11:20
DX: S82.231A Displaced oblique fracture of shaft of right tibia, initial encounter for closed fracture (principal); S82.64XA Nondisplaced fracture of lateral malleolus of right fibula, initial encounter for closed fracture; I10 Essential (primary) hypertension; K21.9 Gastro-esophageal reflux disease without esophagitis; F32.9 Major depressive disorder, single episode, unspecified; E11.9 Type 2 diabetes mellitus without complications; E03.9 Hypothyroidism, unspecified; Z79.82 Long term (current) use of aspirin; Z79.899 Other long term (current) drug therapy; Z88.5 Allergy status to narcotic agent; Z88.0 Allergy status to penicillin; Z88.8 Allergy status to other drugs, medicaments and biological substances; Z95.810 Presence of automatic (implantable) cardiac defibrillator; W10.8XXA Fall (on) (from) other stairs and steps, initial encounter; Y92.009 Unspecified place in unspecified non-institutional (private) residence as the place of occurrence of the external cause
CPT/HCPCS: 36415; 73590-RT; 80053; 85025; 96372; 96374; 99284; 99285-25; J3010; J7030

== ENCOUNTER 2020-05-19 13:21 | Inpatient (IN) | payer MEDICARE, OTHER ==
[2020-05-19 13:46] LABS: CHLORIDE,CL 100 mEq/L (98-106); SODIUM,NA 137 mEq/L (136-145)
[2020-05-19] MEDS ORDERED: Morphine 2 MG/ML SYRINGE IVPUSH PRN (15:15)
[2020-05-19] MEDS ORDERED: Temazepam 15 MG Cap PO PRN (15:15)
[2020-05-19] MEDS ORDERED: Acetaminophen 325 MG Tab PO PRN (15:15)
[2020-05-19] MEDS ORDERED: Sodium Chloride 0.9% 10 ML Syringe FLUSH PRN (15:15)
[2020-05-19] MEDS ORDERED: Levofloxacin/Dextrose 5%-Water 500 MG in Premix Bag 1 BAG IV SCH (15:30)
[2020-05-19] MEDS ORDERED: Barium Sulfate Oral Susp 450 ML Bottle PO ONE (15:41)
[2020-05-19] MEDS ORDERED: Iopamidol 755 Mg/ML 100 ML Bottle IVPUSH ONE (15:41)
[2020-05-19] MEDS ORDERED: HYDROmorphone 1 MG/ML Syringe IVPUSH PRN (16:18)
[2020-05-19] MEDS: metroNIDAZOLE/Normal Saline 500 MG in Premix Bag 1 BAG IV SCH (16:19)
[2020-05-19] MEDS ORDERED: [UNRECOGNIZED DRUG - OTHER] PO PRN (16:25)
[2020-05-19] MEDS ORDERED: CAFFEINE PO PRN (16:25)
[2020-05-19] MEDS ORDERED: BUTALBITAL PO PRN (16:25)
[2020-05-19] MEDS ORDERED: Cyclobenzaprine 10 MG Tab PO PRN (16:25)
[2020-05-19] MEDS ORDERED: ASPIRIN PO PRN (16:25)
[2020-05-19] MEDS: Sotalol 80 MG Tab PO SCH (20:00)
[2020-05-19] MEDS ORDERED: Non-Formulary Medication 1 Each (Magnesium Oxide [Magnesium] 400 MG) PO SCH (20:00)
[2020-05-19] MEDS: Levothyroxine 50 MCG Tab PO SCH (20:01)
[2020-05-19] MEDS: Acetaminophen/HYDROcodone 325-5 MG Tab PO PRN (20:02)
[2020-05-19] MEDS: Carvedilol 12.5 MG Tab PO SCH (20:02)
[2020-05-19] MEDS: Simvastatin 40 MG Tab PO SCH (20:02)
[2020-05-19] MEDS ORDERED: Enoxaparin 40 MG/0.4 ML Syringe SUBCUT SCH (20:45)
[2020-05-20] MEDS: metroNIDAZOLE/Normal Saline 500 MG in Premix Bag 1 BAG IV SCH ×2 (00:08→06:43)
[2020-05-20] MEDS: traMADol 50 MG Tab PO PRN (00:17)
[2020-05-20] MEDS: Pantoprazole 40 MG Tab.CR PO SCH (06:43)
[2020-05-20 07:26] LABS: CHLORIDE,CL 101 mEq/L (98-106); SODIUM,NA 136 mEq/L (136-145)
[2020-05-20] MEDS: Acetaminophen/HYDROcodone 325-5 MG Tab PO PRN ×3 (08:21→20:09)
[2020-05-20] MEDS: Magnesium Chloride 64 MG Tab.ER PO SCH (08:22)
[2020-05-20] MEDS: Multivitamin Tab PO SCH (08:22)
[2020-05-20] MEDS: Sotalol 80 MG Tab PO SCH ×2 (08:22→20:00)
[2020-05-20] MEDS: Furosemide 40 MG Tab PO SCH (08:22)
[2020-05-20] MEDS: Estradiol 1 MG Tab PO SCH (08:22)
[2020-05-20] MEDS: Losartan 25 MG Tab PO SCH (08:24)
[2020-05-20] MEDS: Aspirin 81 MG Tab.Chew PO SCH (08:24)
[2020-05-20] MEDS: Calcium Carbonate/Vitamin D3 1250 MG-200 Unit Tab PO SCH (08:24)
[2020-05-20] MEDS: Vitamin B Complex Cap PO SCH (08:24)
[2020-05-20] MEDS: Carvedilol 12.5 MG Tab PO SCH ×2 (08:24→20:01)
[2020-05-20] MEDS: Enoxaparin 40 MG/0.4 ML Syringe SUBCUT SCH (08:25)
[2020-05-20] MEDS: Spironolactone 25 MG Tab PO SCH (12:10)
[2020-05-20] MEDS: Cholecalciferol (Vitamin D3) 25 MCG Tab PO SCH (12:11)
[2020-05-20] MEDS: Potassium Chloride 10 MEQ Tab.ER PO SCH (12:11)
[2020-05-20] MEDS ORDERED: Piperacillin/Tazobactam 4.5 GM in Sodium Chloride 0.9% 100 ML IV ONE (13:30)
[2020-05-20] MEDS: Simethicone 80 MG Tab.Chew PO PRN ×2 (14:19→20:09)
[2020-05-20] MEDS: Levothyroxine 50 MCG Tab PO SCH (20:00)
[2020-05-20] MEDS: Simvastatin 40 MG Tab PO SCH (20:01)
[2020-05-20] MEDS: Piperacillin/Tazobactam 3.375 GM in Sodium Chloride 0.9% 100 ML IV SCH (20:01)
--- NOTE | 2020-05-20 21:18 | PCM.PN ---
- General Info Date of Service: 05/20/20 Admission Dx/Problem (Free Text): Acute Diverticulitis Functional Status: Reports: Tolerating Diet, Ambulating, Urinating. Denies: Pain Controlled - Review of Systems General: Reports: Weakness, Fatigue, Malaise. Denies: Fever HEENT: Denies: Ear Pain, Sinus Congestion, Sore Throat Pulmonary: Denies: Shortness of Breath, Cough Cardiovascular: Denies: Chest Pain, Edema, Lightheadedness Gastrointestinal: Reports: Abdominal Pain. Denies: Nausea, Vomiting Genitourinary: Reports: No Symptoms Musculoskeletal: Reports: No Symptoms Skin: Reports: No Symptoms Neurological: Reports: No Symptoms - Patient Data Vitals - Most Recent: Last Vital Signs Temp 96.5 F L 05/20/20 16:00 Pulse 82 05/20/20 20:01 Resp 18 05/20/20 16:00 BP 117/53 L 05/20/20 20:01 Pulse Ox 98 05/20/20 16:00 Weight - Most Recent: 219 lb I&O - Last 24 Hours: Intake & Output 05/20/20 05/20/20 05/20/20 06:59 14:59 22:59 Intake Total 100 Balance 100 Lab Results Last 24 Hours: Laboratory Results - last 24 hr 05/20/20 05/20/20 05/20/20 Range/Units 07:00 07:00 20:57 WBC 9.9 (5.0-10.0) 10^3/uL RBC 4.12 (4.00-5.50) 10^6/uL Hgb 11.0 L (12.0-16.0) g/dL Hct 34.4 L (37.0-47.0) % MCV 83.5 (82.0-94.0) fL MCH 26.7 L (27.0-32.0) pg MCHC 32.0 L (33.0-38.0) g/dL RDW Coeff of Kasey 15.8 H (11.0-15.0) % Plt Count 345 (150-400) 10^3/uL Neut % (Auto) 71.1 (35-85) % Lymph % (Auto) 17.3 (10-55) % [place] % (Auto) 10.4 (0-16) % Eos % (Auto) 1.0 (0-5) % Baso % (Auto) 0.2 (0-3) % Neut # (Auto) 7.00 (1.80-7.00) 10^3/uL Lymph # (Auto) 1.71 (1.00-4.80) 10^3/uL [place] # (Auto) 1.03 H (0.00-0.80) 10^3/uL Eos # (Auto) 0.10 (0.00-0.45) 10^3/uL Baso # (Auto) 0.02 10^3/uL Sodium 136 (136-145) mEq/L Potassium 3.4 L (3.5-5.0) mEq/L Chloride 101 (98-106) mEq/L Carbon Dioxide 27 (21-32) mmol/L BUN 7 (7-18) mg/dL Creatinine 0.7 (0.6-1.0) mg/dL Est Cr Clr Drug Dosing 75.44 mL/min Estimated GFR (MDRD) > 60 (>=60) mL/min Glucose 109 H (75-99) mg/dL POC Glucose 145 H (75-105) mg/dl Calcium 8.3 L (8.4-10.1) mg/dL C-Reactive Protein 17.1 H (0.2-0.8) mg/dL Med Orders - Current: Current Medications Acetaminophen (Tylenol) 650 mg PO Q4H PRN PRN Reason: Pain (Mild 1-3)/fever Hydrocodone Bitart/Acetaminophen ([place] 325-5 Mg) 1 tab PO Q4H PRN PRN Reason: Pain (moderate 4-6) Last Admin: 05/20/20 20:09 Dose: 1 tab Documented by: Aspirin (Aspirin) 81 mg PO DAILY [facility] Last Admin: 05/20/20 08:24 Dose: 81 mg Documented by: Calcium Carbonate (Calcium Carbonate/Vitamin D 1250 Mg-200 Unit) 2 tab PO DAILY [facility] Last Admin: 05/20/20 08:24 Dose: 2 tab Documented by: Carvedilol (Coreg) 12.5 mg PO BID [facility] Last Admin: 05/20/20 20:01 Dose: 12.5 mg Documented by: Cholecalciferol (Vitamin D3) 125 mcg PO 1200 [facility] Last Admin: 05/20/20 12:11 Dose: 125 mcg Documented by: Cyclobenzaprine HCl (Flexeril) 10 mg PO TID PRN PRN Reason: Muscle Spasm Enoxaparin Sodium (Lovenox) 40 mg SUBCUT DAILY [facility] Last Admin: 05/20/20 08:25 Dose: 40 mg Documented by: Estradiol (Estradiol) 1 mg PO DAILY [facility] Last Admin: 05/20/20 08:22 Dose: 1 mg Documented by: Furosemide (Lasix) 40 mg PO DAILY [facility] Last Admin: 05/20/20 08:22 Dose: 40 mg Documented by: Hydromorphone HCl (Dilaudid) 1 mg IVPUSH Q3H PRN PRN Reason: Abdominal Pain Last Admin: 05/19/20 16:39 Dose: 1 mg Documented by: Piperacillin Sod/Tazobactam (Sod 3.375 gm/ Sodium Chloride) 100 mls @ 25 mls/hr IV Q8H [facility] Last Admin: 05/20/20 20:01 Dose: 25 mls/hr Documented by: Levothyroxine Sodium (Synthroid) 50 mcg PO BEDTIME [facility] Last Admin: 05/20/20 20:00 Dose: 50 mcg Documented by: Losartan Potassium (Cozaar) 50 mg PO DAILY [facility] Last Admin: 05/20/20 08:24 Dose: 50 mg Documented by: Magnesium Chloride (Mag-64) 128 mg PO DAILY [facility] Last Admin: 05/20/20 08:22 Dose: 128 mg Documented by: Metformin HCl (Glucophage) 1,000 mg PO BEDTIME [facility] Multivitamins/Minerals/Vitamin C (Tab-A-Sahil) 1 tab PO DAILY [facility] Last Admin: 05/20/20 08:22 Dose: 1 tab Documented by: Pantoprazole Sodium (Protonix) 40 mg PO ACBREAKFAST [facility] Last Admin: 05/20/20 06:43 Dose: 40 mg Documented by: Potassium Chloride (Klor-Con 10) 40 meq PO 1200 [facility] Last Admin: 05/20/20 12:11 Dose: 40 meq Documented by: Simethicone (Simethicone) 80 mg PO Q4H PRN PRN Reason: Gas Last Admin: 05/20/20 20:09 Dose: 80 mg Documented by: Simvastatin (Zocor) 40 mg PO BEDTIME [facility] Last Admin: 05/20/20 20:01 Dose: 40 mg Documented by: Sodium Chloride (Saline Flush) 10 ml FLUSH ASDIRECTED PRN PRN Reason: Keep Vein Open Sotalol HCl (Betapace) 120 mg PO BID [facility] Last Admin: 05/20/20 20:00 Dose: 120 mg Documented by: Spironolactone (Aldactone) 25 mg PO DAILY@1200 [facility] Last Admin: 05/20/20 12:10 Dose: 25 mg Documented by: Temazepam (Restoril) 15 mg PO BEDTIME PRN PRN Reason: Sleep Tramadol HCl (Ultram) 50 mg PO Q6H PRN PRN Reason: Pain Last Admin: 05/20/20 00:17 Dose: 50 mg Documented by: Vitamin B Complex (Vitamin B Complex) 1 each PO DAILY [facility] Last Admin: 05/20/20 08:24 Dose: 1 each Documented by: Discontinued Medications Barium Sulfate (Readi-Cat 2) 900 ml PO ONETIME ONE Stop: 05/19/20 15:42 Last Admin: 05/19/20 18:53 Dose: 900 ml Documented by: Enoxaparin Sodium (Lovenox) 40 mg SUBCUT BEDTIME [facility] Last Admin: 05/19/20 21:27 Dose: Not Given Documented by: Levofloxacin/Dextrose 500 mg/ (Premix) 100 mls @ 100 mls/hr IV Q24H [facility] Last Admin: 05/19/20 16:20 Dose: 100 mls/hr Documented by: Metronidazole 500 mg/ Premix 100 mls @ 100 mls/hr IV Q8H [facility] Last Admin: 05/20/20 06:43 Dose: 100 mls/hr Documented by: Piperacillin Sod/Tazobactam (Sod 4.5 gm/ Sodium Chloride) 100 mls @ 200 mls/hr IV ONETIME ONE Stop: 05/20/20 13:59 Last Admin: 05/20/20 14:19 Dose: 200 mls/hr Documented by: Iopamidol (Isovue-370 (76%)) 100 ml IVPUSH ONETIME ONE Stop: 05/19/20 15:42 Last Admin: 05/19/20 18:53 Dose: 100 ml Documented by: Morphine Sulfate (Morphine) 2 mg IVPUSH Q2H PRN PRN Reason: Pain (severe 7-10) Non-Formulary Medication (Butalbital/Aspirin/Caffeine [Fiorinal 50-325-40 Mg]) 1 - 2 tab PO TID PRN PRN Reason: Headache Non-Formulary Medication (Magnesium Oxide [Magnesium]) 400 mg PO BID [facility] Last Admin: 05/20/20 00:58 Dose: Not Given Documented by: - Exam General: Alert, Oriented HEENT: Mucous Membr. Moist/[place] Neck: Supple Lungs: Clear to Auscultation, Normal Respiratory Effort Cardiovascular: Regular Rate, Regular Rhythm GI/Abdominal Exam: Normal Bowel Sounds, Soft, Distended, Tender (tender to left lower quadrant and across suprapubic area) Extremities: Normal Inspection, No Pedal Edema Skin: Warm, Dry Neurological: No New Focal Deficit Sepsis Event Note - Evaluation Sepsis Screening Result: No Definite Risk - Focused Exam Vital Signs: Vital Signs Temp Pulse Pulse Resp BP BP Pulse Ox 05/20/20 20:01 82 117/53 L 05/20/20 20:00 82 117/53 L 05/20/20 16:00 96.5 F L 84 18 123/51 L 98 05/20/20 12:00 98.0 F 78 18 120/54 L 95 - Problem List & Annotations (1) Diverticulitis SNOMED Code(s): 794583404 Code(s): K57.92 - DVTRCLI OF INTEST, PART UNSP, W/O PERF OR ABSCESS W/O BLEED Status: Acute Priority: High Current Visit: Yes - Problem List Review Problem List Initiated/Reviewed/Updated: No - My Orders Last 24 Hours: My Active Orders 05/20/20 13:18 Simethicone 80 mg PO Q4H PRN 05/20/20 20:00 Piperacillin/Tazobactam [Piperacil-Tazobact] 3.375 gm Sodium Chloride 0.9% [Normal Saline] 100 ml IV Q8H - Assessment Assessment:: Diverticulitis - Plan Plan:: Patient admits to ongoing discomfort in her lower abdomen. Feels bloated. Has been eating well. Does feel may be constipated as well. CT scan done last evening shows some worsening of the inflammation related to the diverticulitis. Had been on 8 days of oral Levaquin and Flagyl. Labs done this am show normal WBC, CRP 17. Will switch patient to Zosyn today as failed outpatient therapy with levaquin and flagyl. Pain meds as needed. Repeat labs in am.
[2020-05-21] MEDS: Simethicone 80 MG Tab.Chew PO PRN (03:56)
[2020-05-21] MEDS: Piperacillin/Tazobactam 3.375 GM in Sodium Chloride 0.9% 100 ML IV SCH ×3 (03:56→19:49)
[2020-05-21] MEDS: traMADol 50 MG Tab PO PRN ×2 (03:56→12:14)
[2020-05-21] MEDS: Pantoprazole 40 MG Tab.CR PO SCH (07:02)
[2020-05-21 08:03] LABS: CHLORIDE,CL 104 mEq/L (98-106); SODIUM,NA 140 mEq/L (136-145)
[2020-05-21] MEDS: Vitamin B Complex Cap PO SCH (08:22)
[2020-05-21] MEDS: Calcium Carbonate/Vitamin D3 1250 MG-200 Unit Tab PO SCH (08:22)
[2020-05-21] MEDS: Multivitamin Tab PO SCH (08:22)
[2020-05-21] MEDS: Magnesium Chloride 64 MG Tab.ER PO SCH (08:22)
[2020-05-21] MEDS: Carvedilol 12.5 MG Tab PO SCH ×2 (08:22→19:49)
[2020-05-21] MEDS: Aspirin 81 MG Tab.Chew PO SCH (08:23)
[2020-05-21] MEDS: Sotalol 80 MG Tab PO SCH ×2 (08:23→19:50)
[2020-05-21] MEDS: Losartan 25 MG Tab PO SCH (08:25)
[2020-05-21] MEDS: Estradiol 1 MG Tab PO SCH (08:25)
[2020-05-21] MEDS: Furosemide 40 MG Tab PO SCH (08:25)
[2020-05-21] MEDS: Enoxaparin 40 MG/0.4 ML Syringe SUBCUT SCH (08:26)
[2020-05-21] MEDS ORDERED: Ondansetron 4 MG/2 ML SDV IVPUSH PRN (10:43)
--- NOTE | 2020-05-21 11:27 | PCM.PN ---
- General Info Date of Service: 05/21/20 Admission Dx/Problem (Free Text): Acute Diverticulitis Functional Status: Reports: Ambulating, Urinating. Denies: Pain Controlled, Tolerating Diet - Review of Systems General: Reports: Weakness, Fatigue, Malaise HEENT: Reports: No Symptoms Pulmonary: Denies: Shortness of Breath, Cough Cardiovascular: Denies: Chest Pain, Edema, Lightheadedness Gastrointestinal: Reports: Abdominal Pain, Constipation, Nausea. Denies: Vomiting Genitourinary: Reports: No Symptoms Musculoskeletal: Reports: No Symptoms Skin: Reports: No Symptoms Neurological: Reports: Weakness - Patient Data Vitals - Most Recent: Last Vital Signs Temp 97.4 F 05/21/20 08:00 Pulse 80 05/21/20 08:23 Resp 18 05/21/20 08:00 BP 117/62 05/21/20 08:25 Pulse Ox 95 05/21/20 08:00 Weight - Most Recent: 219 lb Lab Results Last 24 Hours: Laboratory Results - last 24 hr 05/20/20 05/21/20 05/21/20 Range/Units 20:57 07:10 07:10 WBC 8.7 (5.0-10.0) 10^3/uL RBC 4.36 (4.00-5.50) 10^6/uL Hgb 11.6 L (12.0-16.0) g/dL Hct 36.4 L (37.0-47.0) % MCV 83.5 (82.0-94.0) fL MCH 26.6 L (27.0-32.0) pg MCHC 31.9 L (33.0-38.0) g/dL RDW Coeff of [place] 15.8 H (11.0-15.0) % Plt Count 405 H (150-400) 10^3/uL Neut % (Auto) 70.2 (35-85) % Lymph % (Auto) 18.9 (10-55) % [place] % (Auto) 9.3 (0-16) % Eos % (Auto) 1.4 (0-5) % Baso % (Auto) 0.2 (0-3) % Neut # (Auto) 6.08 (1.80-7.00) 10^3/uL Lymph # (Auto) 1.64 (1.00-4.80) 10^3/uL [place] # (Auto) 0.81 H (0.00-0.80) 10^3/uL Eos # (Auto) 0.12 (0.00-0.45) 10^3/uL Baso # (Auto) 0.02 10^3/uL Sodium 140 (136-145) mEq/L Potassium 3.8 (3.5-5.0) mEq/L Chloride 104 (98-106) mEq/L Carbon Dioxide 29 (21-32) mmol/L BUN 7 (7-18) mg/dL Creatinine 0.9 (0.6-1.0) mg/dL Est Cr Clr Drug Dosing 58.67 mL/min Estimated GFR (MDRD) > 60 (>=60) mL/min Glucose 125 H (75-99) mg/dL POC Glucose 145 H (75-105) mg/dl Calcium 8.5 (8.4-10.1) mg/dL C-Reactive Protein 13.8 H (0.2-0.8) mg/dL Med Orders - Current: Current Medications Acetaminophen (Tylenol) 650 mg PO Q4H PRN PRN Reason: Pain (Mild 1-3)/fever Hydrocodone Bitart/Acetaminophen ([place] 325-5 Mg) 1 tab PO Q4H PRN PRN Reason: Pain (moderate 4-6) Last Admin: 05/20/20 20:09 Dose: 1 tab Documented by: Aspirin (Aspirin) 81 mg PO DAILY [facility] Last Admin: 05/21/20 08:23 Dose: 81 mg Documented by: Calcium Carbonate (Calcium Carbonate/Vitamin D 1250 Mg-200 Unit) 2 tab PO DAILY [facility] Last Admin: 05/21/20 08:22 Dose: 2 tab Documented by: Carvedilol (Coreg) 12.5 mg PO BID [facility] Last Admin: 05/21/20 08:22 Dose: 12.5 mg Documented by: Cholecalciferol (Vitamin D3) 125 mcg PO 1200 [facility] Last Admin: 05/20/20 12:11 Dose: 125 mcg Documented by: Cyclobenzaprine HCl (Flexeril) 10 mg PO TID PRN PRN Reason: Muscle Spasm Enoxaparin Sodium (Lovenox) 40 mg SUBCUT DAILY [facility] Last Admin: 05/21/20 08:26 Dose: 40 mg Documented by: Estradiol (Estradiol) 1 mg PO DAILY [facility] Last Admin: 05/21/20 08:25 Dose: 1 mg Documented by: Furosemide (Lasix) 40 mg PO DAILY [facility] Last Admin: 05/21/20 08:25 Dose: 40 mg Documented by: Hydromorphone HCl (Dilaudid) 1 mg IVPUSH Q3H PRN PRN Reason: Abdominal Pain Last Admin: 05/19/20 16:39 Dose: 1 mg Documented by: Piperacillin Sod/Tazobactam (Sod 3.375 gm/ Sodium Chloride) 100 mls @ 25 mls/hr IV Q8H [facility] Last Admin: 05/21/20 03:56 Dose: 25 mls/hr Documented by: Levothyroxine Sodium (Synthroid) 50 mcg PO BEDTIME [facility] Last Admin: 05/20/20 20:00 Dose: 50 mcg Documented by: Losartan Potassium (Cozaar) 50 mg PO DAILY [facility] Last Admin: 05/21/20 08:25 Dose: 50 mg Documented by: Magnesium Chloride (Mag-64) 128 mg PO DAILY [facility] Last Admin: 05/21/20 08:22 Dose: 128 mg Documented by: Metformin HCl (Glucophage) 1,000 mg PO BEDTIME [facility] Multivitamins/Minerals/Vitamin C (Tab-A-Sahil) 1 tab PO DAILY [facility] Last Admin: 05/21/20 08:22 Dose: 1 tab Documented by: Ondansetron HCl (Zofran Odt) 4 mg PO Q6H PRN PRN Reason: Nausea/Vomiting Ondansetron HCl (Zofran) 4 mg IVPUSH Q6H PRN PRN Reason: Nausea Pantoprazole Sodium (Protonix) 40 mg PO ACBREAKFAST [facility] Last Admin: 05/21/20 07:02 Dose: 40 mg Documented by: Polyethylene Glycol (Miralax) 17 gm PO DAILY [facility] Potassium Chloride (Klor-Con 10) 40 meq PO 1200 [facility] Last Admin: 05/20/20 12:11 Dose: 40 meq Documented by: Simethicone (Simethicone) 80 mg PO Q4H PRN PRN Reason: Gas Last Admin: 05/21/20 03:56 Dose: 80 mg Documented by: Simvastatin (Zocor) 40 mg PO BEDTIME [facility] Last Admin: 05/20/20 20:01 Dose: 40 mg Documented by: Sodium Chloride (Saline Flush) 10 ml FLUSH ASDIRECTED PRN PRN Reason: Keep Vein Open Sotalol HCl (Betapace) 120 mg PO BID [facility] Last Admin: 05/21/20 08:23 Dose: 120 mg Documented by: Spironolactone (Aldactone) 25 mg PO DAILY@1200 [facility] Last Admin: 05/20/20 12:10 Dose: 25 mg Documented by: Temazepam (Restoril) 15 mg PO BEDTIME PRN PRN Reason: Sleep Tramadol HCl (Ultram) 50 mg PO Q6H PRN PRN Reason: Pain Last Admin: 05/21/20 03:56 Dose: 50 mg Documented by: Vitamin B Complex (Vitamin B Complex) 1 each PO DAILY [facility] Last Admin: 05/21/20 08:22 Dose: 1 each Documented by: Discontinued Medications Barium Sulfate (Readi-Cat 2) 900 ml PO ONETIME ONE Stop: 05/19/20 15:42 Last Admin: 05/19/20 18:53 Dose: 900 ml Documented by: Enoxaparin Sodium (Lovenox) 40 mg SUBCUT BEDTIME [facility] Last Admin: 05/19/20 21:27 Dose: Not Given Documented by: Levofloxacin/Dextrose 500 mg/ (Premix) 100 mls @ 100 mls/hr IV Q24H [facility] Last Admin: 05/19/20 16:20 Dose: 100 mls/hr Documented by: Metronidazole 500 mg/ Premix 100 mls @ 100 mls/hr IV Q8H [facility] Last Admin: 05/20/20 06:43 Dose: 100 mls/hr Documented by: Piperacillin Sod/Tazobactam (Sod 4.5 gm/ Sodium Chloride) 100 mls @ 200 mls/hr IV ONETIME ONE Stop: 05/20/20 13:59 Last Admin: 05/20/20 14:19 Dose: 200 mls/hr Documented by: Iopamidol (Isovue-370 (76%)) 100 ml IVPUSH ONETIME ONE Stop: 05/19/20 15:42 Last Admin: 05/19/20 18:53 Dose: 100 ml Documented by: Morphine Sulfate (Morphine) 2 mg IVPUSH Q2H PRN PRN Reason: Pain (severe 7-10) Non-Formulary Medication (Butalbital/Aspirin/Caffeine [Fiorinal 50-325-40 Mg]) 1 - 2 tab PO TID PRN PRN Reason: Headache Non-Formulary Medication (Magnesium Oxide [Magnesium]) 400 mg PO BID [facility] Last Admin: 05/20/20 00:58 Dose: Not Given Documented by: - Exam General: Alert, Oriented HEENT: Mucous Membr. Moist/[place] Neck: Supple Lungs: Clear to Auscultation, Normal Respiratory Effort Cardiovascular: Regular Rate, Regular Rhythm GI/Abdominal Exam: Normal Bowel Sounds, Soft, Non-Tender Extremities: Normal Inspection, No Pedal Edema Skin: Warm, Dry Neurological: No New Focal Deficit Sepsis Event Note - Evaluation Sepsis Screening Result: No Definite Risk - Focused Exam Vital Signs: Vital Signs Temp Pulse Pulse Resp BP BP Pulse Ox 05/21/20 08:25 117/62 05/21/20 08:23 80 117/62 05/21/20 08:22 80 117/62 05/21/20 08:00 97.4 F 80 18 117/62 95 05/21/20 03:57 98.6 F 81 16 129/54 L 97 05/21/20 00:00 98.6 F 81 16 119/61 96 - Problem List & Annotations (1) Diverticulitis SNOMED Code(s): 385485882 Code(s): K57.92 - DVTRCLI OF INTEST, PART UNSP, W/O PERF OR ABSCESS W/O BLEED Status: Acute Priority: High Current Visit: Yes - Problem List Review Problem List Initiated/Reviewed/Updated: Yes - My Orders Last 24 Hours: My Active Orders 05/20/20 13:18 Simethicone 80 mg PO Q4H PRN 05/20/20 20:00 Piperacillin/Tazobactam [Piperacil-Tazobact] 3.375 gm Sodium Chloride 0.9% [Normal Saline] 100 ml IV Q8H 05/21/20 10:43 Ondansetron [Zofran ODT] 4 mg PO Q6H PRN Ondansetron [Zofran] 4 mg IVPUSH Q6H PRN 05/21/20 Lunch Advance Diet Instructions [DIET] 05/22/20 08:00 polyethylene glycoL 3350 [MiraLAX] 17 gm PO DAILY - Assessment Assessment:: Diverticulitis - Plan Plan:: Patient admits to ongoing discomfort in her lower abdomen. Feels bloated. Has been eating well. Does feel may be constipated as well. CT scan done last evening shows some worsening of the inflammation related to the diverticulitis. Had been on 8 days of oral Levaquin and Flagyl. Labs done this am show normal WBC, CRP 17. Will switch patient to Zosyn today as failed outpatient therapy with levaquin and flagyl. Pain meds as needed. Repeat labs in am. 05-21-2020 Patient is having more abdominal discomfort this am. Feels bloated. Is passing gas. Does feel she is constipated as has only had very minimal stools in the last 3 days. Was nauseated this am and did not eat breakfast. States unable to handle any more "full liquids. Feels tomato soup is making her more nauseated". Has been up ambulating in halls. Labs are improving. WBC is normal. CRP is down to 13.8. Continue Zosyn. Start Zofran as needed. Miralax daily. Will advance diet as tolerated. Repeat labs in am.
[2020-05-21] MEDS: Ondansetron 4 MG Tab.DIS PO PRN ×2 (12:14→17:55)
[2020-05-21] MEDS: Cholecalciferol (Vitamin D3) 25 MCG Tab PO SCH (12:17)
[2020-05-21] MEDS: Spironolactone 25 MG Tab PO SCH (12:17)
[2020-05-21] MEDS: Potassium Chloride 10 MEQ Tab.ER PO SCH (12:18)
[2020-05-21] MEDS: Acetaminophen/HYDROcodone 325-5 MG Tab PO PRN (17:55)
[2020-05-21] MEDS: Levothyroxine 50 MCG Tab PO SCH (19:49)
[2020-05-21] MEDS: metFORMIN 500 MG Tab PO SCH (19:49)
[2020-05-21] MEDS: Simvastatin 40 MG Tab PO SCH (19:50)
[2020-05-22] MEDS: Piperacillin/Tazobactam 3.375 GM in Sodium Chloride 0.9% 100 ML IV SCH ×3 (04:01→19:56)
[2020-05-22 07:21] LABS: CHLORIDE,CL 102 mEq/L (98-106); SODIUM,NA 139 mEq/L (136-145)
[2020-05-22] MEDS: Aspirin 81 MG Tab.Chew PO SCH (08:23)
[2020-05-22] MEDS: Carvedilol 12.5 MG Tab PO SCH ×2 (08:23→19:55)
[2020-05-22] MEDS: Vitamin B Complex Cap PO SCH (08:23)
[2020-05-22] MEDS: Enoxaparin 40 MG/0.4 ML Syringe SUBCUT SCH (08:23)
[2020-05-22] MEDS: Multivitamin Tab PO SCH (08:24)
[2020-05-22] MEDS: Losartan 25 MG Tab PO SCH (08:24)
[2020-05-22] MEDS: Calcium Carbonate/Vitamin D3 1250 MG-200 Unit Tab PO SCH (08:24)
[2020-05-22] MEDS: Furosemide 40 MG Tab PO SCH (08:24)
[2020-05-22] MEDS: Magnesium Chloride 64 MG Tab.ER PO SCH (08:24)
[2020-05-22] MEDS: Estradiol 1 MG Tab PO SCH (08:24)
[2020-05-22] MEDS: Sotalol 80 MG Tab PO SCH ×2 (08:25→19:54)
[2020-05-22] MEDS: Pantoprazole 40 MG Tab.CR PO SCH (08:25)
[2020-05-22] MEDS: Polyethylene Glycol 3350 Powder 17 GM Packet PO SCH (08:26)
--- NOTE | 2020-05-22 12:25 | PCM.PN ---
- General Info Date of Service: 05/22/20 Admission Dx/Problem (Free Text): Acute Diverticulitis Functional Status: Reports: Pain Controlled, Tolerating Diet, Ambulating - Review of Systems General: Reports: Malaise. Denies: Fever HEENT: Reports: No Symptoms Pulmonary: Denies: Shortness of Breath, Cough Cardiovascular: Denies: Chest Pain, Edema, Lightheadedness Gastrointestinal: Reports: Abdominal Pain (has improved today. Has had several bowel movements over the last 12 hours. Appetite poor yesterday. Able to eat a small amount of soft foods this am.). Denies: Nausea, Vomiting Genitourinary: Reports: No Symptoms Musculoskeletal: Reports: No Symptoms Skin: Reports: No Symptoms Neurological: Reports: No Symptoms - Patient Data Vitals - Most Recent: Last Vital Signs Temp 97.4 F 05/22/20 07:54 Pulse 83 05/22/20 08:25 Resp 16 05/22/20 07:54 BP 108/63 05/22/20 08:25 Pulse Ox 96 05/22/20 07:54 Weight - Most Recent: 219 lb Lab Results Last 24 Hours: Laboratory Results - last 24 hr 05/21/20 05/22/20 05/22/20 Range/Units 19:59 07:02 07:02 WBC 9.1 (5.0-10.0) 10^3/uL RBC 4.44 (4.00-5.50) 10^6/uL Hgb 11.5 L (12.0-16.0) g/dL Hct 37.1 (37.0-47.0) % MCV 83.6 (82.0-94.0) fL MCH 25.9 L (27.0-32.0) pg MCHC 31.0 L (33.0-38.0) g/dL RDW Coeff of [place] 15.8 H (11.0-15.0) % Plt Count 453 H (150-400) 10^3/uL Neut % (Auto) 70.5 (35-85) % Lymph % (Auto) 21.6 (10-55) % [place] % (Auto) 7.3 (0-16) % Eos % (Auto) 0.5 (0-5) % Baso % (Auto) 0.1 (0-3) % Neut # (Auto) 6.43 (1.80-7.00) 10^3/uL Lymph # (Auto) 1.97 (1.00-4.80) 10^3/uL [place] # (Auto) 0.67 (0.00-0.80) 10^3/uL Eos # (Auto) 0.05 (0.00-0.45) 10^3/uL Baso # (Auto) 0.01 10^3/uL Sodium 139 (136-145) mEq/L Potassium 3.9 (3.5-5.0) mEq/L Chloride 102 (98-106) mEq/L Carbon Dioxide 28 (21-32) mmol/L BUN 7 (7-18) mg/dL Creatinine 0.9 (0.6-1.0) mg/dL Est Cr Clr Drug Dosing 58.67 mL/min Estimated GFR (MDRD) > 60 (>=60) mL/min Glucose 139 H (75-99) mg/dL POC Glucose 113 H (75-105) mg/dl Calcium 9.0 (8.4-10.1) mg/dL C-Reactive Protein 7.3 H (0.2-0.8) mg/dL Med Orders - Current: Current Medications Acetaminophen (Tylenol) 650 mg PO Q4H PRN PRN Reason: Pain (Mild 1-3)/fever Hydrocodone Bitart/Acetaminophen ([place] 325-5 Mg) 1 tab PO Q4H PRN PRN Reason: Pain (moderate 4-6) Last Admin: 05/21/20 17:55 Dose: 1 tab Documented by: Aspirin (Aspirin) 81 mg PO DAILY [facility] Last Admin: 05/22/20 08:23 Dose: 81 mg Documented by: Calcium Carbonate (Calcium Carbonate/Vitamin D 1250 Mg-200 Unit) 2 tab PO DAILY [facility] Last Admin: 05/22/20 08:24 Dose: 2 tab Documented by: Carvedilol (Coreg) 12.5 mg PO BID [facility] Last Admin: 05/22/20 08:23 Dose: 12.5 mg Documented by: Cholecalciferol (Vitamin D3) 125 mcg PO 1200 [facility] Last Admin: 05/21/20 12:17 Dose: 125 mcg Documented by: Cyclobenzaprine HCl (Flexeril) 10 mg PO TID PRN PRN Reason: Muscle Spasm Enoxaparin Sodium (Lovenox) 40 mg SUBCUT DAILY [facility] Last Admin: 05/22/20 08:23 Dose: 40 mg Documented by: Estradiol (Estradiol) 1 mg PO DAILY [facility] Last Admin: 05/22/20 08:24 Dose: 1 mg Documented by: Furosemide (Lasix) 40 mg PO DAILY [facility] Last Admin: 05/22/20 08:24 Dose: 40 mg Documented by: Hydromorphone HCl (Dilaudid) 1 mg IVPUSH Q3H PRN PRN Reason: Abdominal Pain Last Admin: 05/19/20 16:39 Dose: 1 mg Documented by: Piperacillin Sod/Tazobactam (Sod 3.375 gm/ Sodium Chloride) 100 mls @ 25 mls/hr IV Q8H [facility] Last Admin: 05/22/20 04:01 Dose: 25 mls/hr Documented by: Levothyroxine Sodium (Synthroid) 50 mcg PO BEDTIME [facility] Last Admin: 05/21/20 19:49 Dose: 50 mcg Documented by: Losartan Potassium (Cozaar) 50 mg PO DAILY [facility] Last Admin: 05/22/20 08:24 Dose: 50 mg Documented by: Magnesium Chloride (Mag-64) 128 mg PO DAILY [facility] Last Admin: 05/22/20 08:24 Dose: 128 mg Documented by: Metformin HCl (Glucophage) 1,000 mg PO BEDTIME [facility] Last Admin: 05/21/20 19:49 Dose: 1,000 mg Documented by: Multivitamins/Minerals/Vitamin C (Tab-A-Sahil) 1 tab PO DAILY [facility] Last Admin: 05/22/20 08:24 Dose: 1 tab Documented by: Ondansetron HCl (Zofran Odt) 4 mg PO Q6H PRN PRN Reason: Nausea/Vomiting Last Admin: 05/21/20 17:55 Dose: 4 mg Documented by: Ondansetron HCl (Zofran) 4 mg IVPUSH Q6H PRN PRN Reason: Nausea Pantoprazole Sodium (Protonix) 40 mg PO ACBREAKFAST [facility] Last Admin: 05/22/20 08:25 Dose: 40 mg Documented by: Polyethylene Glycol (Miralax) 17 gm PO DAILY [facility] Last Admin: 05/22/20 08:26 Dose: Not Given Documented by: Potassium Chloride (Klor-Con 10) 40 meq PO 1200 [facility] Last Admin: 05/21/20 12:18 Dose: 40 meq Documented by: Simethicone (Simethicone) 80 mg PO Q4H PRN PRN Reason: Gas Last Admin: 05/21/20 03:56 Dose: 80 mg Documented by: Simvastatin (Zocor) 40 mg PO BEDTIME [facility] Last Admin: 05/21/20 19:50 Dose: 40 mg Documented by: Sodium Chloride (Saline Flush) 10 ml FLUSH ASDIRECTED PRN PRN Reason: Keep Vein Open Sotalol HCl (Betapace) 120 mg PO BID [facility] Last Admin: 05/22/20 08:25 Dose: 120 mg Documented by: Spironolactone (Aldactone) 25 mg PO DAILY@1200 [facility] Last Admin: 05/21/20 12:17 Dose: 25 mg Documented by: Temazepam (Restoril) 15 mg PO BEDTIME PRN PRN Reason: Sleep Tramadol HCl (Ultram) 50 mg PO Q6H PRN PRN Reason: Pain Last Admin: 05/21/20 12:14 Dose: 50 mg Documented by: Vitamin B Complex (Vitamin B Complex) 1 each PO DAILY [facility] Last Admin: 05/22/20 08:23 Dose: 1 each Documented by: Discontinued Medications Barium Sulfate (Readi-Cat 2) 900 ml PO ONETIME ONE Stop: 05/19/20 15:42 Last Admin: 05/19/20 18:53 Dose: 900 ml Documented by: Enoxaparin Sodium (Lovenox) 40 mg SUBCUT BEDTIME [facility] Last Admin: 05/19/20 21:27 Dose: Not Given Documented by: Levofloxacin/Dextrose 500 mg/ (Premix) 100 mls @ 100 mls/hr IV Q24H [facility] Last Admin: 05/19/20 16:20 Dose: 100 mls/hr Documented by: Metronidazole 500 mg/ Premix 100 mls @ 100 mls/hr IV Q8H [facility] Last Admin: 05/20/20 06:43 Dose: 100 mls/hr Documented by: Piperacillin Sod/Tazobactam (Sod 4.5 gm/ Sodium Chloride) 100 mls @ 200 mls/hr IV ONETIME ONE Stop: 05/20/20 13:59 Last Admin: 05/20/20 14:19 Dose: 200 mls/hr Documented by: Iopamidol (Isovue-370 (76%)) 100 ml IVPUSH ONETIME ONE Stop: 05/19/20 15:42 Last Admin: 05/19/20 18:53 Dose: 100 ml Documented by: Morphine Sulfate (Morphine) 2 mg IVPUSH Q2H PRN PRN Reason: Pain (severe 7-10) Non-Formulary Medication (Butalbital/Aspirin/Caffeine [Fiorinal 50-325-40 Mg]) 1 - 2 tab PO TID PRN PRN Reason: Headache Non-Formulary Medication (Magnesium Oxide [Magnesium]) 400 mg PO BID [facility] Last Admin: 05/20/20 00:58 Dose: Not Given Documented by: - Exam General: Alert, Oriented HEENT: Mucous Membr. Moist/[place] Neck: Supple Lungs: Clear to Auscultation, Normal Respiratory Effort Cardiovascular: Regular Rate, Regular Rhythm GI/Abdominal Exam: Normal Bowel Sounds, Tender (LLQ. Not as guarded as yesterday. Abdomen is less distended and soft.) Extremities: Normal Inspection, No Pedal Edema Skin: Warm, Dry Neurological: No New Focal Deficit Sepsis Event Note - Evaluation Sepsis Screening Result: No Definite Risk - Focused Exam Vital Signs: Vital Signs Temp Pulse Pulse Resp BP BP Pulse Ox 05/22/20 08:25 83 108/63 05/22/20 08:24 108/63 05/22/20 08:23 81 108/53 L 05/22/20 07:54 97.4 F 81 16 108/53 L 96 05/22/20 04:00 98.2 F 90 18 129/60 96 - Problem List & Annotations (1) Diverticulitis SNOMED Code(s): 526121365 Code(s): K57.92 - DVTRCLI OF INTEST, PART UNSP, W/O PERF OR ABSCESS W/O BLEED Status: Acute Priority: High Current Visit: Yes - Problem List Review Problem List Initiated/Reviewed/Updated: Yes - My Orders Last 24 Hours: My Active Orders 05/21/20 Lunch Advance Diet Instructions [DIET] 05/22/20 08:00 polyethylene glycoL 3350 [MiraLAX] 17 gm PO DAILY - Assessment Assessment:: Diverticulitis - Plan Plan:: Patient admits to ongoing discomfort in her lower abdomen. Feels bloated. Has been eating well. Does feel may be constipated as well. CT scan done last evening shows some worsening of the inflammation related to the diverticulitis. Had been on 8 days of oral Levaquin and Flagyl. Labs done this am show normal WBC, CRP 17. Will switch patient to Zosyn today as failed outpatient therapy with levaquin and flagyl. Pain meds as needed. Repeat labs in am. 05-21-2020 Patient is having more abdominal discomfort this am. Feels bloated. Is passing gas. Does feel she is constipated as has only had very minimal stools in the l ast 3 days. Was nauseated this am and did not eat breakfast. States unable to handle any more "full liquids. Feels tomato soup is making her more nauseated". Has been up ambulating in halls. Labs are improving. WBC is normal. CRP is down to 13.8. Continue Zosyn. Start Zofran as needed. Miralax daily. Will advance diet as tolerated. Repeat labs in am. 05-22-2020 Patient is feeling better today. Has less abdominal pain than prior. Has had several stools now since yesterday, feels much less bloated and tender. Is ambulating in halls. Nausea has improved versus yesterday. Able to eat a small amount of soft foods this am. WBC is normal this am at 9.1. CRP is still trending down at 7.3. Blood pressure stable. Oxygen sats normal. Will continue Zosyn. Ambulate. Likely discharge in am.
[2020-05-22] MEDS: Potassium Chloride 10 MEQ Tab.ER PO SCH (12:37)
[2020-05-22] MEDS: Cholecalciferol (Vitamin D3) 25 MCG Tab PO SCH (12:37)
[2020-05-22] MEDS: Spironolactone 25 MG Tab PO SCH (12:37)
[2020-05-22] MEDS: Levothyroxine 50 MCG Tab PO SCH (19:54)
[2020-05-22] MEDS: metFORMIN 500 MG Tab PO SCH (19:55)
[2020-05-22] MEDS: Simvastatin 40 MG Tab PO SCH (19:55)
[2020-05-23] MEDS: Piperacillin/Tazobactam 3.375 GM in Sodium Chloride 0.9% 100 ML IV SCH (04:00)
[2020-05-23] MEDS: Pantoprazole 40 MG Tab.CR PO SCH (07:00)
[2020-05-23 07:59] LABS: CHLORIDE,CL 105 mEq/L (98-106); SODIUM,NA 142 mEq/L (136-145)
[2020-05-23] MEDS: Multivitamin Tab PO SCH (08:58)
[2020-05-23] MEDS: Sotalol 80 MG Tab PO SCH (08:58)
[2020-05-23] MEDS: Estradiol 1 MG Tab PO SCH (08:58)
[2020-05-23] MEDS: Magnesium Chloride 64 MG Tab.ER PO SCH (08:58)
[2020-05-23] MEDS: Losartan 25 MG Tab PO SCH (09:00)
[2020-05-23] MEDS: Furosemide 40 MG Tab PO SCH (09:01)
[2020-05-23] MEDS: Vitamin B Complex Cap PO SCH (09:01)
[2020-05-23] MEDS: Carvedilol 12.5 MG Tab PO SCH (09:01)
[2020-05-23] MEDS: Aspirin 81 MG Tab.Chew PO SCH (09:02)
[2020-05-23] MEDS: Enoxaparin 40 MG/0.4 ML Syringe SUBCUT SCH (09:02)
[2020-05-23 09:03] VITALS: BP 110/45; PULSE 82
[2020-05-23] MEDS: Polyethylene Glycol 3350 Powder 17 GM Packet PO SCH (09:03)
[2020-05-23] MEDS: Calcium Carbonate/Vitamin D3 1250 MG-200 Unit Tab PO SCH (09:05)
--- NOTE | 2020-05-23 19:18 | PCM.DCSUM1 ---
Discharge Summary - Hospital Course Free Text/Narrative:: Patient presented to clinic in follow up to see Alissa with persisting abdominal pain. She had been seen in clinic prior by myself and found to have diverticulitis. Was placed on Flagyl and Cipro and did well for about 5 days. Over the 24 hours prior to admission, patient began to have more and more pain. Had been taking flexeril and tramadol for pain. Had started having diarrhea. No fevers. Appetite decreased, more nausea. Repeat labs done in clinic, WBC up to 14.1. CRP 10.9. ADmitted and started on IV Levaquin and Flagyl Diagnosis: Stroke: No Modified [place] Scale: No Symptoms at All Modified [place] Scale Score: 0 - Discharge Data Discharge Date: 05/23/20 Discharge Disposition: Home, Self-Care 01 Condition: Good - Referral to Home Health Primary Care Physician: Alissa Tovar, [employer] - Discharge Diagnosis/Problem(s) (1) Diverticulitis SNOMED Code(s): 879119147 ICD Code: K57.92 - DVTRCLI OF INTEST, PART UNSP, W/O PERF OR ABSCESS W/O BLEED Status: Acute Priority: High - Patient Summary/Data Complications: none Hospital Course: Patient is feeling much improved now. Has minimal abdominal pain, only mildly sore with palpation to abdomen. Is tolerating a soft diet. Ambulating easily. Had several stools yesterday and now feels less bloated. Afebrile. Labs have steadily improved. WBC is normal. CRP is down to 3.4. Patient aware will need colonoscopy once infection has cleared. As she was switched to Zosyn and has continued to improve, will discharge home on Augmentin. Relates that had Amoxicillin one time in the past and had nausea so will take Zofran as needed to help tolerate med. Follow up with Alissa in 7 days. - Patient Instructions Diet: Usual Diet as Tolerated Activity: As Tolerated - Discharge Plan *PRESCRIPTION DRUG MONITORING PROGRAM REVIEWED*: No *COPY OF PRESCRIPTION DRUG MONITORING REPORT IN PATIENT ANNE: No Prescriptions/Med Rec: Amoxicillin/Potassium Clav [Augmentin 875-125 Tablet] 1 each PO Q4H #20 tablet Acetaminophen/HYDROcodone [[place] 325-5 MG] 1 tab PO Q4H PRN #20 tablet PRN Reason: Pain (Moderate 4-6) Ondansetron [Zofran ODT] 4 mg PO Q6H PRN #30 tab.dis PRN Reason: Nausea/Vomiting Home Medications: Home Meds Aspirin 81 mg PO DAILY 02/09/15 [History] Butalbital/Aspirin/Caffeine [Fiorinal 50-325-40 MG] 1 - 2 tab PO TID PRN 02/09/15 [History] Calcium Carbonate/Vitamin D3 [Calcium 600-Vit D3 400 Tablet] 2 tab PO DAILY 02/09/15 [History] Cholecalciferol (Vitamin D3) [Vitamin D3] 5,000 unit PO 1200 02/09/15 [History] Docusate Sodium [Colace] 100 mg PO BID 02/09/15 [History] Furosemide 40 mg PO DAILY 02/09/15 [History] Levothyroxine [Synthroid] 50 mcg PO BEDTIME 02/09/15 [History] Losartan [Cozaar] 50 mg PO DAILY 02/09/15 [History] Multivitamin with Minerals [Multiple Vitamin] 1 tab PO DAILY 02/09/15 [History] Pantoprazole Sodium 40 mg PO DAILY 02/09/15 [History] Rosuvastatin Calcium [Crestor] 10 mg PO BEDTIME 02/09/15 [History] Vitamin B Complex Vit C No.4 [Super B Complex] 1 tab PO DAILY 02/09/15 [History] carvediloL [Carvedilol] 12.5 mg PO BID 02/09/15 [History] Clotrimazole/Betamethasone Dip [Lotrisone Cream] 1 applic TOP BID PRN 07/03/18 [History] Cyclobenzaprine HCl 10 mg PO TID PRN 07/03/18 [History] Spironolactone [Aldactone] 25 mg PO DAILY@1200 07/03/18 [History] Triamcinolone Acetonide [Triamcinolone Acetonide 0.1% Crm] 1 applic TOP ASDIRECTED PRN 07/03/18 [History] metFORMIN [Glucophage] 1,000 mg PO BEDTIME 07/03/18 [History] traMADol HCl [Tramadol HCl] 50 mg PO Q6H PRN 07/03/18 [History] estradioL [Estrace] 1 mg PO DAILY 01/21/19 [History] Magnesium Oxide [Magnesium] 400 mg PO BID #60 capsule 01/22/19 [Rx] Hydrocodone/Acetaminophen [[place] 10-325 Tablet] 1 each PO Q6H PRN 12/17/19 [History] Sotalol HCl [Sotalol] 120 mg PO BID 12/17/19 [History] Ciprofloxacin HCl [Cipro] 500 mg PO BID 05/19/20 [History] Magnesium Chloride [Mag-64] 2 tab PO DAILY 05/19/20 [History] Potassium Chloride 40 meq PO 1200 05/19/20 [History] Acetaminophen/HYDROcodone [[place] 325-5 MG] 1 tab PO Q4H PRN #20 tablet 05/23/20 [Rx] Amoxicillin/Potassium Clav [Augmentin 875-125 Tablet] 1 each PO Q4H #20 tablet 05/23/20 [Rx] Ondansetron [Zofran ODT] 4 mg PO Q6H PRN #30 tab.dis 05/23/20 [Rx] Referrals: Alissa Tovar, [employer] [Primary Care Provider] - (Follow up with alissa in 7 days) - Discharge Summary/Plan Comment DC Time >30 min.: No - General Info Date of Service: 05/23/20 Admission Dx/Problem (Free Text: Acute Diverticulitis Functional Status: Reports: Pain Controlled, Tolerating Diet, Ambulating, Urinating - Review of Systems General: Denies: Fever, Weakness, Fatigue, Malaise, Chills HEENT: Reports: No Symptoms Pulmonary: Denies: Shortness of Breath, Cough Cardiovascular: Denies: Chest Pain Gastrointestinal: Reports: Abdominal Pain (mild in nature at this point). Den ies: Decreased Appetite, Nausea, Vomiting Genitourinary: Reports: No Symptoms Musculoskeletal: Reports: No Symptoms Skin: Reports: No Symptoms Neurological: Reports: No Symptoms - Patient Data Vitals - Most Recent: Last Vital Signs Temp 97.1 F 05/23/20 08:00 Pulse 82 05/23/20 09:01 Resp 16 05/23/20 08:00 BP 110/45 L 05/23/20 09:01 Pulse Ox 96 05/23/20 08:00 Weight - Most Recent: 219 lb Lab Results - Last 24 hrs: Laboratory Results - last 24 hr 05/23/20 05/23/20 05/23/20 Range/Units 07:00 07:00 08:33 WBC 6.7 (5.0-10.0) 10^3/uL RBC 4.18 (4.00-5.50) 10^6/uL Hgb 10.9 L (12.0-16.0) g/dL Hct 35.3 L (37.0-47.0) % MCV 84.4 (82.0-94.0) fL MCH 26.1 L (27.0-32.0) pg MCHC 30.9 L (33.0-38.0) g/dL RDW Coeff of Kasey 15.9 H (11.0-15.0) % Plt Count 426 H (150-400) 10^3/uL Neut % (Auto) 53.1 (35-85) % Lymph % (Auto) 34.4 (10-55) % Glynn % (Auto) 9.3 (0-16) % Eos % (Auto) 2.9 (0-5) % Baso % (Auto) 0.3 (0-3) % Neut # (Auto) 3.54 (1.80-7.00) 10^3/uL Lymph # (Auto) 2.29 (1.00-4.80) 10^3/uL Glynn # (Auto) 0.62 (0.00-0.80) 10^3/uL Eos # (Auto) 0.19 (0.00-0.45) 10^3/uL Baso # (Auto) 0.02 10^3/uL Sodium 142 (136-145) mEq/L Potassium 4.2 (3.5-5.0) mEq/L Chloride 105 (98-106) mEq/L Carbon Dioxide 30 (21-32) mmol/L BUN 9 (7-18) mg/dL Creatinine 0.8 (0.6-1.0) mg/dL Est Cr Clr Drug Dosing 66.01 mL/min Estimated GFR (MDRD) > 60 (>=60) mL/min Glucose 106 H (75-99) mg/dL POC Glucose 115 H (75-105) mg/dl Calcium 8.6 (8.4-10.1) mg/dL C-Reactive Protein 3.4 H (0.2-0.8) mg/dL Med Orders - Current: Current Medications Discontinued Medications Acetaminophen (Tylenol) 650 mg PO Q4H PRN PRN Reason: Pain (Mild 1-3)/fever Hydrocodone Bitart/Acetaminophen ([place] 325-5 Mg) 1 tab PO Q4H PRN PRN Reason: Pain (moderate 4-6) Last Admin: 05/21/20 17:55 Dose: 1 tab Documented by: Aspirin (Aspirin) 81 mg PO DAILY [facility] Last Admin: 05/23/20 09:02 Dose: 81 mg Documented by: Barium Sulfate (Readi-Cat 2) 900 ml PO ONETIME ONE Stop: 05/19/20 15:42 Last Admin: 05/19/20 18:53 Dose: 900 ml Documented by: Calcium Carbonate (Calcium Carbonate/Vitamin D 1250 Mg-200 Unit) 2 tab PO DAILY [facility] Last Admin: 05/23/20 09:05 Dose: 2 tab Documented by: Carvedilol (Coreg) 12.5 mg PO BID [facility] Last Admin: 05/23/20 09:01 Dose: 12.5 mg Documented by: Cholecalciferol (Vitamin D3) 125 mcg PO 1200 [facility] Last Admin: 05/22/20 12:37 Dose: 125 mcg Documented by: Cyclobenzaprine HCl (Flexeril) 10 mg PO TID PRN PRN Reason: Muscle Spasm Enoxaparin Sodium (Lovenox) 40 mg SUBCUT BEDTIME [facility] Last Admin: 05/19/20 21:27 Dose: Not Given Documented by: Enoxaparin Sodium (Lovenox) 40 mg SUBCUT DAILY [facility] Last Admin: 05/23/20 09:02 Dose: 40 mg Documented by: Estradiol (Estradiol) 1 mg PO DAILY [facility] Last Admin: 05/23/20 08:58 Dose: 1 mg Documented by: Furosemide (Lasix) 40 mg PO DAILY [facility] Last Admin: 05/23/20 09:01 Dose: 40 mg Documented by: Hydromorphone HCl (Dilaudid) 1 mg IVPUSH Q3H PRN PRN Reason: Abdominal Pain Last Admin: 05/19/20 16:39 Dose: 1 mg Documented by: Levofloxacin/Dextrose 500 mg/ (Premix) 100 mls @ 100 mls/hr IV Q24H [facility] Last Admin: 05/19/20 16:20 Dose: 100 mls/hr Documented by: Metronidazole 500 mg/ Premix 100 mls @ 100 mls/hr IV Q8H [facility] Last Admin: 05/20/20 06:43 Dose: 100 mls/hr Documented by: Piperacillin Sod/Tazobactam (Sod 4.5 gm/ Sodium Chloride) 100 mls @ 200 mls/hr IV ONETIME ONE Stop: 05/20/20 13:59 Last Admin: 05/20/20 14:19 Dose: 200 mls/hr Documented by: Piperacillin Sod/Tazobactam (Sod 3.375 gm/ Sodium Chloride) 100 mls @ 25 mls/hr IV Q8H [facility] Last Admin: 05/23/20 04:00 Dose: 25 mls/hr Documented by: Iopamidol (Isovue-370 (76%)) 100 ml IVPUSH ONETIME ONE Stop: 05/19/20 15:42 Last Admin: 05/19/20 18:53 Dose: 100 ml Documented by: Levothyroxine Sodium (Synthroid) 50 mcg PO BEDTIME [facility] Last Admin: 05/22/20 19:54 Dose: 50 mcg Documented by: Losartan Potassium (Cozaar) 50 mg PO DAILY [facility] Last Admin: 05/23/20 09:00 Dose: 50 mg Documented by: Magnesium Chloride (Mag-64) 128 mg PO DAILY [facility] Last Admin: 05/23/20 08:58 Dose: 128 mg Documented by: Metformin HCl (Glucophage) 1,000 mg PO BEDTIME [facility] Last Admin: 05/22/20 19:55 Dose: 1,000 mg Documented by: Morphine Sulfate (Morphine) 2 mg IVPUSH Q2H PRN PRN Reason: Pain (severe 7-10) Multivitamins/Minerals/Vitamin C (Tab-A-Sahil) 1 tab PO DAILY [facility] Last Admin: 05/23/20 08:58 Dose: 1 tab Documented by: Non-Formulary Medication (Butalbital/Aspirin/Caffeine [Fiorinal 50-325-40 Mg]) 1 - 2 tab PO TID PRN PRN Reason: Headache Non-Formulary Medication (Magnesium Oxide [Magnesium]) 400 mg PO BID [facility] Last Admin: 05/20/20 00:58 Dose: Not Given Documented by: Ondansetron HCl (Zofran Odt) 4 mg PO Q6H PRN PRN Reason: Nausea/Vomiting Last Admin: 05/21/20 17:55 Dose: 4 mg Documented by: Ondansetron HCl (Zofran) 4 mg IVPUSH Q6H PRN PRN Reason: Nausea Pantoprazole Sodium (Protonix) 40 mg PO ACBREAKFAST [facility] Last Admin: 05/23/20 07:00 Dose: 40 mg Documented by: Polyethylene Glycol (Miralax) 17 gm PO DAILY [facility] Last Admin: 05/23/20 09:03 Dose: Not Given Documented by: Potassium Chloride (Klor-Con 10) 40 meq PO 1200 [facility] Last Admin: 05/22/20 12:37 Dose: 40 meq Documented by: Simethicone (Simethicone) 80 mg PO Q4H PRN PRN Reason: Gas Last Admin: 05/21/20 03:56 Dose: 80 mg Documented by: Simvastatin (Zocor) 40 mg PO BEDTIME [facility] Last Admin: 05/22/20 19:55 Dose: 40 mg Documented by: Sodium Chloride (Saline Flush) 10 ml FLUSH ASDIRECTED PRN PRN Reason: Keep Vein Open Sotalol HCl (Betapace) 120 mg PO BID [facility] Last Admin: 05/23/20 08:58 Dose: 120 mg Documented by: Spironolactone (Aldactone) 25 mg PO DAILY@1200 [facility] Last Admin: 05/22/20 12:37 Dose: 25 mg Documented by: Temazepam (Restoril) 15 mg PO BEDTIME PRN PRN Reason: Sleep Tramadol HCl (Ultram) 50 mg PO Q6H PRN PRN Reason: Pain Last Admin: 05/21/20 12:14 Dose: 50 mg Documented by: Vitamin B Complex (Vitamin B Complex) 1 each PO DAILY [facility] Last Admin: 05/23/20 09:01 Dose: 1 each Documented by: - Exam General: Reports: Alert, Oriented HEENT: Reports: Mucous Membr. Moist/[place] Neck: Reports: Supple Lungs: Reports: Clear to Auscultation, Normal Respiratory Effort Cardiovascular: Reports: Regular Rate, Regular Rhythm GI/Abdominal Exam: Normal Bowel Sounds, Soft, Tender (mild tenderness to left lower quadrant) Skin: Reports: Warm, Dry Neurological: Reports: No New Focal Deficit
== END 2020-05-23 09:50 | disposition home or self-care (01) | DRG 392 ==
LOC: CC.FCMC 13:21 → CC.MS 13:21 → UNDOADMIN 14:55 → CC.MS 15:15
PROVIDERS: ADMIT Nurse Practitioner Family; ATTEND Family Medicine
DX: K57.32 Diverticulitis of large intestine without perforation or abscess without bleeding (principal); Z20.828 Contact with and (suspected) exposure to other viral communicable diseases; E78.00 Pure hypercholesterolemia, unspecified; F41.9 Anxiety disorder, unspecified; G47.33 Obstructive sleep apnea (adult) (pediatric); K59.00 Constipation, unspecified; Z79.82 Long term (current) use of aspirin; Z79.899 Other long term (current) drug therapy; Z79.890 Hormone replacement therapy; Z79.84 Long term (current) use of oral hypoglycemic drugs; Z79.02 Long term (current) use of antithrombotics/antiplatelets; Z88.0 Allergy status to penicillin; Z88.8 Allergy status to other drugs, medicaments and biological substances; I25.2 Old myocardial infarction; Z87.19 Personal history of other diseases of the digestive system; Z90.49 Acquired absence of other specified parts of digestive tract; Z90.710 Acquired absence of both cervix and uterus; Z98.890 Other specified postprocedural states
CPT/HCPCS: 36415; 74019; 74177; 80048; 80053; 81001; 82962; 85025; 86140; A9270-GY; J1170; J1650; J1956; J2543; J3490; J7050; Q9967; U0002

== ENCOUNTER → 2020-08-04 | Day surgery (SDC) | payer MEDICARE, OTHER ==
[~2020-08-04] MED LIST changes: -Benzocaine 20% Oral Spray 59.2 ML Canister MUCMEM ONE; +Ketamine 200 MG/20 ML MDV ONE; +Lidocaine 2% 5 ML SDV ONE; -Midazolam 1 MG/ML 2 ML SDV IV ONE; -Midazolam 1 MG/ML 2 ML SDV ONE; +Propofol 200 MG/20 ML SDV ONE; -fentaNYL 100 MCG/2 ML SDV IV ONE
[2020-08-04 11:34] VITALS: BP 102/39; PULSE 70
--- NOTE | 2020-08-04 13:21 | OR ---
DATE OF OPERATION: 08/04/2020 PREOPERATIVE DIAGNOSIS: PERSONAL HISTORY OF PRIOR COLON POLYPS AND DIARRHEA. POSTOPERATIVE DIAGNOSIS: PERSONAL HISTORY OF PRIOR COLON POLYPS AND DIARRHEA. SURGEON: Román Franco MD PROCEDURE: TOTAL COLONOSCOPY WITH SNARE EXCISION OF 2 POLYP GROUPS, ONE IN THE PROXIMAL TRANSVERSE COLON, ONE IN THE MID TRANSVERSE COLON AREA. ANESTHESIA: Monitored anesthesia care. SPECIMEN: Polyp x2. INDICATIONS: This 70-year-old female has had multiple colonoscopies with multiple polyps. Her other main problem is a sense of urgency and only minimal control. It is not particularly just diarrhea, it is more of a control urgency problem. DESCRIPTION OF PROCEDURE: After adequate preparation, the colonoscope was inserted into the rectum. This was very difficult to manipulate through the sigmoid colon and due to her multiple abdominal surgeries, the colon seemed to be in a fixed position. It was difficult to finally manipulate the colon all the way to the cecum. I was able to see the cecum, however. We took a picture of the ileocecal valve and palpation in the right lower quadrant revealed the tip of the scope to be there. The bowel prep was excellent. On withdrawal of the scope, there were 2 flat sessile polyps, one in about the proximal transverse colon region and the other in the middle transverse colon region. However, due to the length of her colon and the twisting it really was impossible to tell exactly where this was, but I think certainly was within the transverse colon area. A snare was placed around these polyps. These were clipped off and retrieved into a polyp trap. No other abnormalities were noted. Air was suctioned from the colon and the scope removed. TIANA/KERRYL /[id number]
== END ==
LOC: CC.SDS 07:27
PROVIDERS: ATTEND Surgery
DX: D12.3 Benign neoplasm of transverse colon (principal); E11.9 Type 2 diabetes mellitus without complications; I10 Essential (primary) hypertension; E78.5 Hyperlipidemia, unspecified; F32.9 Major depressive disorder, single episode, unspecified; M25.511 Pain in right shoulder; M25.512 Pain in left shoulder; B02.9 Zoster without complications; G47.33 Obstructive sleep apnea (adult) (pediatric); E03.9 Hypothyroidism, unspecified; I25.10 Atherosclerotic heart disease of native coronary artery without angina pectoris; Z20.822 Contact with and (suspected) exposure to COVID-19; Z01.812 Encounter for preprocedural laboratory examination; Z88.8 Allergy status to other drugs, medicaments and biological substances; Z88.0 Allergy status to penicillin; Z79.82 Long term (current) use of aspirin; Z79.899 Other long term (current) drug therapy; Z79.84 Long term (current) use of oral hypoglycemic drugs; Z79.890 Hormone replacement therapy
CPT/HCPCS: 00811; 45385; 82962; J2001; J2704; J3010; J7120

== ENCOUNTER 2022-01-28 12:27 | Emergency (ER) | payer MEDICARE, OTHER ==
[2022-01-28 12:38] VITALS: BP 116/72; PULSE 83
[2022-01-28] MEDS ORDERED: Ciprofloxacin 0.3% Ophth Soln 5 ML Bottle EYELF SCH (12:45)
== END 2022-01-28 13:20 | disposition home or self-care (01) ==
LOC: CC.ED 12:27
DX: H10.9 Unspecified conjunctivitis (principal); B96.89 Other specified bacterial agents as the cause of diseases classified elsewhere; E78.00 Pure hypercholesterolemia, unspecified; I10 Essential (primary) hypertension; K21.9 Gastro-esophageal reflux disease without esophagitis; E03.9 Hypothyroidism, unspecified; Z88.5 Allergy status to narcotic agent; Z88.0 Allergy status to penicillin; Z88.8 Allergy status to other drugs, medicaments and biological substances; Z79.82 Long term (current) use of aspirin; Z79.899 Other long term (current) drug therapy; Z79.84 Long term (current) use of oral hypoglycemic drugs; Z95.810 Presence of automatic (implantable) cardiac defibrillator
CPT/HCPCS: 99282; 99283; A9270-GY

== ENCOUNTER 2022-02-09 17:06 | Emergency (ER) | payer MEDICARE, OTHER ==
[2022-02-09 17:23] VITALS: BP 118/76; PULSE 88
[2022-02-09] MEDS ORDERED: Take Home: Acetaminophen/HYDROcodone 325-5 MG, 2 Tab Pack ONE (18:16)
[2022-02-09] MEDS ORDERED: Acetaminophen/HYDROcodone 325-5 MG Tab PO PRN (18:26)
[2022-02-09] MEDS ORDERED: Take Home: Acetaminophen/HYDROcodone 325-5 MG, 2 Tab Pack PO ONE (18:27)
== END 2022-02-09 19:06 | disposition home or self-care (01) ==
LOC: CC.ED 17:06
DX: S82.431A Displaced oblique fracture of shaft of right fibula, initial encounter for closed fracture (principal); E78.00 Pure hypercholesterolemia, unspecified; I11.9 Hypertensive heart disease without heart failure; E11.9 Type 2 diabetes mellitus without complications; E03.9 Hypothyroidism, unspecified; Z95.0 Presence of cardiac pacemaker; Z88.0 Allergy status to penicillin; Z88.5 Allergy status to narcotic agent; Z79.82 Long term (current) use of aspirin; Z79.84 Long term (current) use of oral hypoglycemic drugs; Z79.899 Other long term (current) drug therapy
CPT/HCPCS: 73610; 99284; A9270

== ENCOUNTER 2024-01-16 05:19 | Day surgery (SDC) | payer MEDICARE, OTHER ==
[2024-01-16] MEDS: Lactated Ringers 1,000 ML IV SCH (05:45)
[2024-01-16] MEDS: Cyclopentolat/Tropic/Phenyleph 1 ML Ophth Drop SDV EYEBOTH SCH (05:47)
[2024-01-16] MEDS ORDERED: Midazolam 1 MG/ML 2 ML SDV ONE (06:10)
[2024-01-16] MEDS: Brimonidine 0.2% Ophth Soln 5 ML Bottle EYERT ONE (06:27)
[2024-01-16] MEDS: Povidone-Iodine 5% Sterile Ophth Soln 30 ML Bottle EYERT ONE (06:27)
[2024-01-16] MEDS: Lidocaine 1% 5 ML VIAL INJECT ONE (06:27)
[2024-01-16] MEDS: MOXIFLOXACIN PF in BSS 1 MG/ML VIAL ICORN ONE (06:27)
[2024-01-16] MEDS: Phenyleprhine/Ketorolac 4 ML Vial IR ONE (06:27)
[2024-01-16] MEDS: Tetracaine HCl/PF 0.5% 4 ML Bottle EYERT ONE (06:27)
[2024-01-16 07:39] VITALS: BP 128/52; PULSE 72
== END 2024-01-16 07:48 | disposition home or self-care (01) ==
LOC: CC.SDS 05:19
PROVIDERS: ATTEND Ophthalmology
DX: E11.36 Type 2 diabetes mellitus with diabetic cataract (principal); H26.8 Other specified cataract; I11.0 Hypertensive heart disease with heart failure; I50.20 Unspecified systolic (congestive) heart failure; E78.5 Hyperlipidemia, unspecified; E03.9 Hypothyroidism, unspecified; K21.9 Gastro-esophageal reflux disease without esophagitis; I42.0 Dilated cardiomyopathy; Z79.82 Long term (current) use of aspirin; Z79.84 Long term (current) use of oral hypoglycemic drugs; Z79.85 Long-term (current) use of injectable non-insulin antidiabetic drugs; Z79.890 Hormone replacement therapy; Z79.899 Other long term (current) drug therapy; Z88.0 Allergy status to penicillin; Z88.8 Allergy status to other drugs, medicaments and biological substances
CPT/HCPCS: J1097; J2250; J3490; J7120; V2632

== ENCOUNTER 2024-02-13 06:35 | Day surgery (SDC) | payer MEDICARE, OTHER ==
[2024-02-13] MEDS: Cyclopentolat/Tropic/Phenyleph 1 ML Ophth Drop SDV EYELF SCH (06:50)
[2024-02-13] MEDS: Lactated Ringers 1,000 ML IV SCH (06:52)
[2024-02-13] MEDS ORDERED: Midazolam 1 MG/ML 2 ML SDV ONE (07:25)
[2024-02-13] MEDS ORDERED: fentaNYL 50 MCG/ML SDV ONE (07:25)
[2024-02-13] MEDS: MOXIFLOXACIN PF in BSS 1 MG/ML VIAL ICORN ONE (07:41)
[2024-02-13] MEDS: Brimonidine 0.2% Ophth Soln 5 ML Bottle EYELF ONE (07:41)
[2024-02-13] MEDS: TETRACAINE 0.5% EYELF ONE (07:41)
[2024-02-13] MEDS: Lidocaine 1% PF 2 ML SDV INJECT ONE (07:41)
[2024-02-13] MEDS: Phenyleprhine/Ketorolac 4 ML Vial OP ONE (07:41)
[2024-02-13] MEDS: Povidone-Iodine 5% Sterile Ophth Soln 30 ML Bottle EYELF ONE (07:41)
[2024-02-13] MEDS ORDERED: Phenyleprhine/Ketorolac 4 ML Vial IR ONE (07:45)
[2024-02-13] MEDS ORDERED: Lidocaine 1% 5 ML VIAL INJECT ONE (07:45)
[2024-02-13] MEDS ORDERED: Brimonidine 0.2% Ophth Soln 5 ML Bottle EYELF SCH (08:00)
[2024-02-13] MEDS: acetaZOLAMIDE 500 MG Cap.ER PO ONE (08:07)
[2024-02-13 08:58] VITALS: BP 119/47; PULSE 77
== END 2024-02-13 08:50 | disposition home or self-care (01) ==
LOC: CC.SDS 06:35
PROVIDERS: ATTEND Ophthalmology
DX: E11.36 Type 2 diabetes mellitus with diabetic cataract (principal); H26.8 Other specified cataract; I11.0 Hypertensive heart disease with heart failure; I50.20 Unspecified systolic (congestive) heart failure; K21.9 Gastro-esophageal reflux disease without esophagitis; E03.9 Hypothyroidism, unspecified; F32.A Depression, unspecified; I42.0 Dilated cardiomyopathy; E78.00 Pure hypercholesterolemia, unspecified; Z79.82 Long term (current) use of aspirin; Z79.85 Long-term (current) use of injectable non-insulin antidiabetic drugs; Z79.890 Hormone replacement therapy; Z79.899 Other long term (current) drug therapy; Z88.0 Allergy status to penicillin; Z88.8 Allergy status to other drugs, medicaments and biological substances
CPT/HCPCS: A9270-GY; J1097; J2250; J3010; J3490; J7120; V2632

== ENCOUNTER 2024-07-09 17:05 | Emergency (ER) | payer MEDICARE, OTHER ==
[2024-07-09] MEDS ORDERED: Naloxone 2 MG/2 ML Syringe IVPUSH PRN (17:14)
[2024-07-09] MEDS: fentaNYL 100 MCG/2 ML SDV IV ONE (17:22)
[2024-07-09] MEDS: HYDROmorphone 0.5 MG/0.5 ML Syringe IVPUSH ONE ×2 (17:44→18:23)
[2024-07-09 18:12] VITALS: BP 131/47; PULSE 86
== END 2024-07-09 18:40 | disposition critical access hospital (66) ==
LOC: CC.ED 17:05
DX: S43.014A Anterior dislocation of right humerus, initial encounter (principal); I10 Essential (primary) hypertension; E78.00 Pure hypercholesterolemia, unspecified; K21.9 Gastro-esophageal reflux disease without esophagitis; E11.9 Type 2 diabetes mellitus without complications; E03.9 Hypothyroidism, unspecified; Z90.49 Acquired absence of other specified parts of digestive tract; Z90.710 Acquired absence of both cervix and uterus; Z79.82 Long term (current) use of aspirin; Z79.890 Hormone replacement therapy; Z79.84 Long term (current) use of oral hypoglycemic drugs; Z79.899 Other long term (current) drug therapy; Z79.85 Long-term (current) use of injectable non-insulin antidiabetic drugs; Z88.0 Allergy status to penicillin; Z88.5 Allergy status to narcotic agent; Z88.8 Allergy status to other drugs, medicaments and biological substances; W10.9XXA Fall (on) (from) unspecified stairs and steps, initial encounter; Y92.002 Bathroom of unspecified non-institutional (private) residence as the place of occurrence of the external cause
CPT/HCPCS: 73030-RT; 96374; 96375; 96376; 99284-25; J1171; J3010